=== PATIENT | female | born 1950 | race American Indian/Alaskan Native ===

== ENCOUNTER 2017-08-18 03:36 | Inpatient (IN) | payer MEDICARE ==
[2017-08-18] MEDS ORDERED: ZOFRAN ODT ONE (04:06)
[2017-08-18] MEDS ORDERED: ZOFRAN ODT PO ONE ×2 (04:07)
[2017-08-18 04:58] LABS: Basophils % (Auto) 0.8 % (0.0-1.8); Eosinophils % (Auto) 1.5 % (0.0-4.3); Hematocrit 38.8 % (30.3-42.9); Mean Corpuscular HGB Conc 33 % (30-34); Mean Corpuscular Hemoglobin 27 pg (28-32); Mean Corpuscular Volume 82 fl (79-97); Platelet Count 268 K/mm3 (140-440); Red Blood Count 4.75 M/mm3 (3.65-5.03); Red Cell Distribution Width 18.9 % (13.2-15.2); White Blood Count 12.5 K/mm3 (4.5-11.0)
[2017-08-18 06:04] LABS: Albumin 3.9 g/dL (3.9-5); Albumin/Globulin Ratio 1.1 %; Bilirubin,Total 0.2 mg/dL (0.1-1.2); Calcium 9.1 mg/dL (8.4-10.2); Chloride 97.4 mmol/L (98-107); Potassium 4.7 mmol/L (3.6-5.0); Total Protein 7.4 g/dL (6.3-8.2)
[2017-08-18] MEDS ORDERED: TORADOL IV ONE (08:57)
[2017-08-18] MEDS ORDERED: MORPHINE IV ONE ×2 (08:58→10:56)
[2017-08-18] MEDS ORDERED: NACL ONE (09:07)
[2017-08-18 09:33] LABS: Bacteria,Urine 2+ /HPF (Negative); Bilirubin,Urine NEG (Negative); Blood,Urine SM (Negative); Ketones,Urine NEG (Negative); Leukocyte Esterase,Urine TR (Negative); Mucus,Urine FEW /HPF; Nitrite,Urine NEG (Negative); Urobilinogen,Urine < 2.0 mg/dL (<2.0)
--- NOTE | 2017-08-18 09:49 | Cat Scan Report ---
CT of the abdomen and pelvis with IV and oral contrast. History: Left lower quadrant pain. Findings: The liver is normal in size and configuration with no focal abnormalities. There is a peripheral somewhat wedge shaped hypodensity in the posterior spleen measuring 7 mm in maximum dimension. No other splenic abnormalities are seen. The pancreas and gallbladder are normal. The kidneys are normal in size and configuration. 2 small cysts are seen in the left kidney. There is no hydronephrosis. The adrenal glands appear normal. There is marked mural thickening and pericolonic mesenteric inflammation in the mid sigmoid colon with multiple diverticula noted in the area. No free air is identified, and there is no evidence of focal abscess. Impression: 1. Diverticulitis of the sigmoid colon. 2. Small peripheral splenic hypodensity, possibly representing infarct or cyst. 3. 2 small left renal cysts are noted.
--- NOTE | 2017-08-18 10:33 | Emergency Department Report ---
ED Abdominal Pain HPI - General Chief Complaint: Abdominal Pain Stated Complaint: CHEST PAIN Source: patient, EMS Mode of arrival: Stretcher Limitations: No Limitations - History of Present Illness MD Complaint: abdominal pain Onset/Timin (day) -: Gradual Time: 21:00 Location: [facility] Radiation: chest Severity scale (0 -10): 6 Quality: sharp Consistency: constant Improves With: other (was given toradol and morphine with improvement) Worsens With: nothing Associated Symptoms: nausea, vomiting, constipation - Related Data Home Medications Medication Instructions Recorded Confirmed Last Taken Albuterol Sulfate [Ventolin HFA] 5 mg IH PRN 07/13/15 07/13/15 Unknown Amlodipine Besylate/Benazepril 10 mg PO QDAY 07/13/15 07/13/15 Unknown [Lotrel 10-40 mg] Fluticasone 1 spray INTRANASAL PRN PRN 07/13/15 07/13/15 Unknown Glimepiride [Amaryl] 2 mg PO QAM 07/13/15 07/13/15 Unknown Lantus Solostar 100 units SUB-Q ACHS 07/13/15 07/13/15 Unknown Losartan [Cozaar] 100 mg PO QDAY 07/13/15 07/13/15 Unknown Lubiprostone [Amitiza] 24 mcg PO DAILY 07/13/15 07/13/15 Unknown Metoprolol [Lopressor TAB] 25 mg PO DAILY 07/13/15 07/13/15 Unknown Nitroglycerin [Nitrostat] 0.4 mg TRANSDERMA DAILY 07/13/15 07/13/15 Unknown Potassium Gluconate [Potassium] 8 mg PO DAILY 07/13/15 07/13/15 Unknown Ranolazine [Ranexa] 1,000 mg PO DAILY 07/13/15 07/13/15 Unknown Rosuvastatin Calcium [Crestor] 40 mg PO DAILY 07/13/15 07/13/15 Unknown Sitagliptin Phosphate [Januvia] 100 mg PO DAILY 07/13/15 07/13/15 Unknown Tizanidine HCl [tiZANidine] 4 mg PO DAILY 07/13/15 07/13/15 Unknown Previous Rx's Medication Instructions Recorded Last Taken Type Ranitidine HCl [Zantac 150 MG TAB] 150 mg PO DAILY #30 tablet 07/13/15 Unknown Rx traMADol [Ultram] 50 mg PO Q6HR PRN #15 tablet 07/13/15 Unknown Rx Allergies Allergy/AdvReac Type Severity Reaction Status Date / Time No Known Allergies Allergy Verified 08/18/17 03:49 ED Review of Systems ROS: Stated complaint: CHEST PAIN Other details as noted in HPI Comment: All other systems reviewed and negative ED Past Medical Hx - Past Medical History Hx Hypertension: Yes Hx Heart Attack/AMI: Yes (X4) Hx Congestive Heart Failure: Yes Hx Diabetes: Yes - Surgical History Hx Open Heart Surgery: Yes - Social History Smoking Status: Never Smoker Substance Use Type: None - Medications Home Medications: Home Medications Medication Instructions Recorded Confirmed Last Taken Type Albuterol Sulfate [Ventolin HFA] 5 mg IH PRN 07/13/15 07/13/15 Unknown History Amlodipine Besylate/Benazepril 10 mg PO QDAY 07/13/15 07/13/15 Unknown History [Lotrel 10-40 mg] Fluticasone 1 spray INTRANASAL PRN PRN 07/13/15 07/13/15 Unknown History Glimepiride [Amaryl] 2 mg PO QAM 07/13/15 07/13/15 Unknown History Lantus Solostar 100 units SUB-Q ACHS 07/13/15 07/13/15 Unknown History Losartan [Cozaar] 100 mg PO QDAY 07/13/15 07/13/15 Unknown History Lubiprostone [Amitiza] 24 mcg PO DAILY 07/13/15 07/13/15 Unknown History Metoprolol [Lopressor TAB] 25 mg PO DAILY 07/13/15 07/13/15 Unknown History Nitroglycerin [Nitrostat] 0.4 mg TRANSDERMA DAILY 07/13/15 07/13/15 Unknown History Potassium Gluconate [Potassium] 8 mg PO DAILY 07/13/15 07/13/15 Unknown History Ranitidine HCl [Zantac 150 MG TAB] 150 mg PO DAILY #30 tablet 07/13/15 Unknown Rx Ranolazine [Ranexa] 1,000 mg PO DAILY 07/13/15 07/13/15 Unknown History Rosuvastatin Calcium [Crestor] 40 mg PO DAILY 07/13/15 07/13/15 Unknown History Sitagliptin Phosphate [Januvia] 100 mg PO DAILY 07/13/15 07/13/15 Unknown History Tizanidine HCl [tiZANidine] 4 mg PO DAILY 07/13/15 07/13/15 Unknown History traMADol [Ultram] 50 mg PO Q6HR PRN #15 tablet 07/13/15 Unknown Rx ED Physical Exam - General Limitations: No Limitations General appearance: alert, in no apparent distress - Head Head exam: Present: atraumatic, normocephalic - Eye Eye exam: Present: normal appearance - ENT ENT exam: Present: mucous membranes moist - Neck Neck exam: Present: normal inspection - Respiratory Respiratory exam: Present: normal lung sounds bilaterally. Absent: respiratory distress - Cardiovascular Cardiovascular Exam: Present: regular rate, normal rhythm. Absent: systolic murmur, diastolic murmur, rubs, gallop - GI/Abdominal GI/Abdominal exam: Present: soft, tenderness (left lower quadrant), normal bowel sounds. Absent: guarding - Extremities Exam Extremities exam: Present: normal inspection - Back Exam Back exam: Present: normal inspection - Neurological Exam Neurological exam: Present: alert, oriented X3 - Psychiatric Psychiatric exam: Present: normal affect, normal mood - Skin Skin exam: Present: warm, dry, intact, normal color. Absent: rash ED Course Vital Signs 08/18/17 08/18/17 08/18/17 03:45 03:46 04:56 Temperature 98.4 F Pulse Rate 98 H Respiratory 22 Rate Blood Pressure 204/114 160/75 O2 Sat by Pulse 97 98 96 Oximetry 08/18/17 08/18/17 08/18/17 04:59 05:01 06:00 Temperature Pulse Rate Respiratory 20 Rate Blood Pressure 143/68 132/75 O2 Sat by Pulse 94 96 Oximetry 08/18/17 08/18/17 08/18/17 07:01 08:00 09:39 Temperature Pulse Rate Respiratory Rate Blood Pressure 151/82 140/75 140/75 O2 Sat by Pulse 92 96 96 Oximetry ED Medical Decision Making - Lab Data Result diagrams: 08/18/17 04:40 08/18/17 05:27 - EKG Data -: EKG Interpreted by Me EKG shows normal: sinus rhythm, axis (NORMAL), intervals (NORMAL), QRS complexes (NORMAL), ST-T waves (NON SPECIFIC) Rate: normal - Radiology Data Radiology results: report reviewed - Medical Decision Making DIVERTICULITIS Critical care attestation.: If time is entered above; I have spent that time in minutes in the direct care of this critically ill patient, excluding procedure time. ED Disposition Clinical Impression: Sigmoid diverticulitis Disposition: DC-09 OP ADMIT IP TO THIS HOSP Is pt being admited?: Yes Does the pt Need Aspirin: Yes Condition: Stable Instructions: Abdominal Pain (ED) Referrals: JAKE FERNANDEZ MD [Primary Care Provider] - 3-5 Days Time of Disposition: 10:37
[2017-08-18] MEDS ORDERED: MORPHINE ONE (10:55)
[2017-08-18] MEDS ORDERED: TYLENOL PO PRN (11:00)
[2017-08-18] MEDS ORDERED: DULCOLAX PR PRN (11:00)
[2017-08-18] MEDS ORDERED: D50W (25GM) Syringe IV PRN (11:14)
--- NOTE | 2017-08-18 11:16 | History and Physical Report ---
<ADELINA MONGE - Last Filed: 08/18/17 13:33> History of Present Illness Date of examination: 08/18/17 Date of admission: 08/18/2017 Chief complaint: Left lower abdominal pain History of present illness: Patient is a 66 years old female with past medical history of hypertension, diabetes mellitus, congestive heart failure and [place] 4 who prsents to the emergency room for left lower quadrant abdominal pain,nausea and vomiting. The patient states that for the past five days she has felt bloated and has had a decrease in appetite. Two days ago she began having intermittent abdominal pain that initially felt like gas pains but it has now progressed to being nearly constant. Since yesterday she has had severe nausea and has had 4 episodes of bilious vomiting despite not having taken anything by mouth in over 24 hours. Her last bowel movement was over four days ago. She has a history of intermittent constipation but never with this level of pain, the vomiting, or the bloating. She has a history of diverticulitis. Initially, when she would eat the pain would increase but she has not eaten anything for over 24 hours. Vomiting is the only thing that seems to provide some minimal relief. Currently , the pain is described as a constant dull, diffuse pain that intermittently becomes sharp and well localized. The sharp pain tends to occur in different locations at different times. The intensity of the pain has been increasing over the past two days and on pain scale she now rates the pain at 8 out of 10. She denies a recent history of fever, jaundice, pruritis, diarrhea, hemoptysis, melena, or hematochezia. She denies a known history of hemorrhoids, colon cancer , peptic ulcer disease, gastritis, acid reflux, gall bladder disease or cholelithiasis. She denies a history of smoking or alcohol . Past History Past Medical History: diabetes, heart failure, hypertension, other (MIX4) Past Surgical History: CABG, Other (CABG) Social history: denies: smoking, alcohol abuse Family history: diabetes, hypertension Medications and Allergies Allergies Allergy/AdvReac Type Severity Reaction Status Date / Time No Known Allergies Allergy Verified 08/18/17 03:49 Home Medications Medication Instructions Recorded Confirmed Last Taken Type Glimepiride [Amaryl] 2 mg PO QAM 07/13/15 08/18/17 Unknown History Lubiprostone [Amitiza] 24 mcg PO DAILY 07/13/15 08/18/17 Unknown History Tizanidine HCl [tiZANidine] 4 mg PO DAILY 07/13/15 08/18/17 Unknown History Furosemide [Lasix TAB] 40 mg PO QDAY 08/18/17 08/18/17 Unknown History HYDROcodone/APAP 7.5-325 [[place] 1 tab PO Q6H 08/18/17 08/18/17 Unknown History 7.5-325 mg TAB] cloNIDine [Catapres] 0.1 mg PO BID 08/18/17 08/18/17 Unknown History diphenhydrAMINE [Benadryl CAP] 25 mg PO QHS 08/18/17 08/18/17 Unknown History glipiZIDE [Glucotrol] 10 mg PO BID 08/18/17 08/18/17 Unknown History Active Meds: Active Medications Acetaminophen (Tylenol) 650 mg PO Q4H PRN PRN Reason: Pain MILD(1-3)/Fever >100.5/GIBBONS Bisacodyl (Dulcolax) 10 mg [place] QDAY PRN PRN Reason: Constipation unrelieved by MOM Dextrose (D50w (25gm) Syringe) 50 ml IV PRN PRN PRN Reason: Hypoglycemia Enoxaparin Sodium (Lovenox) 40 mg SUB-Q QDAY HARVINDER Metronidazole (Flagyl 500 Mg/100 Ml) 500 mg in 100 mls @ 100 mls/hr IV Q8HR HARVINDER Sodium Chloride (Nacl 0.9% 1000 Ml) 1,000 mls @ 125 mls/hr IV DIRECT HARVINDER Piperacillin Sod/Tazobactam Sod (Zosyn/Ns 4.5gm/100ml) 4.5 gm in 100 mls @ 200 mls/hr IV Q6HR HARVINDER PRN Reason: Protocol Insulin Aspart (Novolog) 0 units SUB-Q AC HARVINDER PRN Reason: Protocol Insulin Aspart (Novolog) 0 units SUB-Q QHS HARVINDER PRN Reason: Protocol Morphine Sulfate (Morphine) 2 mg IV Q4H PRN PRN Reason: Pain, Moderate (4-6) Ondansetron HCl (Zofran) 4 mg IM Q4H PRN PRN Reason: Nausea And Vomiting Review of Systems Constitutional: chills, fatigue, weakness, poor appetite, no weight loss, no weight gain, no fever Ears, nose, mouth and throat: no nasal congestion, no nasal discharge, no sinus pain Cardiovascular: no chest pain, no rapid/irregular heart beat, no lightheadedness , no shortness of breath, no dyspnea on exertion Respiratory: no cough, no cough with sputum Gastrointestinal: abdominal pain, nausea, vomiting, excessive gas, no diarrhea, no melena, no jaundice Genitourinary Female: no pelvic pain, no menorrhagia Menstruation: no premenarcheal, no post hysterectomy, no ammenorrhea Rectal: no incontinence, no bleeding Musculoskeletal: no arm numbness/tingling, no low back pain, no shooting leg pain Integumentary: no redness, no wounds, no boils Neurological: no numbness, no tingling, no seizures Psychiatric: no hypersomnia, no change in libido, no suicidal ideation, no disorientation Endocrine: no excessive thirst, no polydipsia, no nocturia Hematologic/Lymphatic: no easy bruising, no easy bleeding Allergic/Immunologic: no urticaria, no allergic rhinitis Exam - Constitutional Vitals: Temp Pulse Resp BP Pulse Ox 98.4 F 98 H 20 156/82 95 08/18/17 03:45 08/18/17 03:45 08/18/17 04:59 08/18/17 10:00 08/18/17 10:00 General appearance: Present: no acute distress - EENT Eyes: Present: PERRL ENT: hearing intact - Neck Neck: Present: supple - Respiratory Respiratory effort: normal Respiratory: bilateral: CTA - Cardiovascular Rhythm: regular Heart Sounds: Present: S1 & S2 - Abdominal General gastrointestinal: Present: soft, non-tender Localized gastrointestinal: tender: LLQ, epigastric periumbilical, guarding: LLQ , epigastric periumbilical Female genitourinary: Present: deferred - Rectal Rectal Exam: deferred - Integumentary Integumentary: Present: clear, warm, dry - Musculoskeletal Musculoskeletal: strength equal bilaterally - Psychiatric Psychiatric: appropriate mood/affect - Neurologic Neurologic: moves all extremities - Allied Health Allied health notes reviewed: nursing Results - Labs CBC & Chem 7: 08/18/17 04:40 08/18/17 05:27 Labs: Laboratory Last Values WBC 12.5 K/mm3 (4.5-11.0) H 08/18/17 04:40 RBC 4.75 M/mm3 (3.65-5.03) 08/18/17 04:40 Hgb 13.0 gm/dl (10.1-14.3) 08/18/17 04:40 Hct 38.8 % (30.3-42.9) 08/18/17 04:40 MCV 82 fl (79-97) 08/18/17 04:40 MCH 27 pg (28-32) L 08/18/17 04:40 MCHC 33 % (30-34) 08/18/17 04:40 RDW 18.9 % (13.2-15.2) H 08/18/17 04:40 Plt Count 268 K/mm3 (140-440) 08/18/17 04:40 Lymph % (Auto) 21.5 % (13.4-35.0) 08/18/17 04:40 [place] % (Auto) 10.0 % (0.0-7.3) H 08/18/17 04:40 Eos % (Auto) 1.5 % (0.0-4.3) 08/18/17 04:40 Baso % (Auto) 0.8 % (0.0-1.8) 08/18/17 04:40 Lymph # 2.7 K/mm3 (1.2-5.4) 08/18/17 04:40 [place] # 1.2 K/mm3 (0.0-0.8) H 08/18/17 04:40 Eos # 0.2 K/mm3 (0.0-0.4) 08/18/17 04:40 Baso # 0.1 K/mm3 (0.0-0.1) 08/18/17 04:40 Seg Neutrophils % 66.2 % (40.0-70.0) 08/18/17 04:40 Seg Neutrophils # 8.3 K/mm3 (1.8-7.7) H 08/18/17 04:40 Sodium 135 mmol/L (137-145) L 08/18/17 05:27 Potassium 4.7 mmol/L (3.6-5.0) 08/18/17 05:27 Chloride 97.4 mmol/L (98-107) L 08/18/17 05:27 Carbon Dioxide 23 mmol/L (22-30) 08/18/17 05:27 Anion Gap 19 mmol/L 08/18/17 05:27 BUN 15 mg/dL (7-17) 08/18/17 05:27 Creatinine 1.1 mg/dL (0.7-1.2) 08/18/17 05:27 Estimated GFR 60 ml/min 08/18/17 05:27 BUN/Creatinine Ratio 14 % 08/18/17 05:27 Glucose 216 mg/dL (65-100) H 08/18/17 05:27 Calcium 9.1 mg/dL (8.4-10.2) 08/18/17 05:27 Total Bilirubin 0.20 mg/dL (0.1-1.2) 08/18/17 05:27 AST 12 units/L (5-40) 08/18/17 05:27 ALT 9 units/L (7-56) 08/18/17 05:27 Alkaline Phosphatase 104 units/L (35-129) 08/18/17 05:27 Total Protein 7.4 g/dL (6.3-8.2) 08/18/17 05:27 Albumin 3.9 g/dL (3.9-5) 08/18/17 05:27 Albumin/Globulin Ratio 1.1 % 08/18/17 05:27 Lipase 13 units/L (13-60) 08/18/17 05:27 Urine Color Yellow (Yellow) 08/18/17 09:09 Urine Turbidity Clear (Clear) 08/18/17 09:09 Urine pH 5.0 (5.0-7.0) 08/18/17 09:09 Ur Specific [place] 1.012 (1.003-1.030) 08/18/17 09:09 Urine Protein 30 mg/dl mg/dL (Negative) 08/18/17 09:09 Urine Glucose (UA) 50 mg/dL (Negative) 08/18/17 09:09 Urine Ketones Neg mg/dL (Negative) 08/18/17 09:09 Urine Blood Sm (Negative) 08/18/17 09:09 Urine Nitrite Neg (Negative) 08/18/17 09:09 Urine Bilirubin Neg (Negative) 08/18/17 09:09 Urine Urobilinogen < 2.0 mg/dL (<2.0) 08/18/17 09:09 Ur Leukocyte Esterase Tr (Negative) 08/18/17 09:09 Urine WBC (Auto) 5.0 /HPF (0.0-6.0) 08/18/17 09:09 Urine RBC (Auto) 6.0 /HPF (0.0-6.0) 08/18/17 09:09 U Epithel Cells (Auto) 6.0 /HPF (0-13.0) 08/18/17 09:09 Urine Bacteria (Auto) 2+ /HPF (Negative) 08/18/17 09:09 Urine Mucus Few /HPF 08/18/17 09:09 - Imaging and Cardiology CT scan - abdomen: image reviewed (diverticulitis of the sigmoid colon) Assessment and Plan Assessment and plan: Patient is a 66 years old female with past medical history of hypertension, diabetes mellitus, congestive heart failure and [place] 4 who prsents to the emergency room for left lower quadrant abdominal pain,nausea and vomiting. Diverticulitis CT of the abdomen revealed diverticulitis of the sigmoid colon Nothing by mouth; rest the gut for now and we will start clear liquid diet as tolerated Blood cultures collected prior to antibiotic Flllow blood cultures Initiated empiric IV Levaquin and Flagyl IV fluid hydration Supportive care Intractable nausea and vomiting Started on antiemetic IV fluid hydration Pain contol with Morphine Diabetes mellitus Accu-Chek every 6 hours Sliding scale insulin/NovoLog Hypertension Hold on antihypertensive medication for now until N/V resolved IV Hydralazine for now Closely monitor blood pressure Hyponatremia Started on IV fluids that will correct it Closely monitor electrolytes Leukocytosis Secondary to diverticulitis Closely monitor DVT prophylaxis Lovenox Advance Directives: Yes VTE prophylaxis?: Chemical Contraindication Mechanical VTE Prophylaxis: Contraindicated Plan of care discussed with patient/family: Yes <ABUNDIO MCCORMICK E - Last Filed: 08/18/17 18:55> History of Present Illness Date of admission: 08/18/17 11:00 Medications and Allergies Active Meds: Active Medications Acetaminophen (Tylenol) 650 mg PO Q4H PRN PRN Reason: Pain MILD(1-3)/Fever >100.5/GIB[place]ONS Bisacodyl (Dulcolax) 10 mg WI QDAY PRN PRN Reason: Constipation unrelieved by MOM Dextrose (D50w (25gm) Syringe) 50 ml IV PRN PRN PRN Reason: Hypoglycemia Enoxaparin Sodium (Lovenox) 40 mg SUB-Q QDAY HARVINDER Metronidazole (Flagyl 500 Mg/100 Ml) 500 mg in 100 mls @ 100 mls/hr IV Q8HR HARVINDER Last Admin: 08/18/17 15:45 Dose: 100 mls/hr Sodium Chloride (Nacl 0.9% 1000 Ml) 1,000 mls @ 125 mls/hr IV DIRECT HARVINDER Levofloxacin/Dextrose (Levaquin 500mg/100ml) 500 mg in 100 mls @ 100 mls/hr IV Q24HR HARVINDER PRN Reason: Protocol Insulin Aspart (Novolog) 0 units SUB-Q AC HARVINDER PRN Reason: Protocol Last Admin: 08/18/17 11:41 Dose: 1 units Insulin Aspart (Novolog) 0 units SUB-Q QHS HARVINDER PRN Reason: Protocol Morphine Sulfate (Morphine) 2 mg IV Q4H PRN PRN Reason: Pain, Moderate (4-6) Last Admin: 08/18/17 15:45 Dose: 2 mg Ondansetron HCl (Zofran) 4 mg IM Q4H PRN PRN Reason: Nausea And Vomiting Exam - Constitutional Vitals: Temp Pulse Resp BP Pulse Ox 99 F 92 H 18 148/72 95 08/18/17 15:20 08/18/17 15:20 08/18/17 15:20 08/18/17 15:20 08/18/17 15:20 Results - Labs CBC & Chem 7: 08/18/17 04:40 08/18/17 05:27 Labs: Laboratory Last Values WBC 12.5 K/mm3 (4.5-11.0) H 08/18/17 04:40 RBC 4.75 M/mm3 (3.65-5.03) 08/18/17 04:40 Hgb 13.0 gm/dl (10.1-14.3) 08/18/17 04:40 Hct 38.8 % (30.3-42.9) 08/18/17 04:40 MCV 82 fl (79-97) 08/18/17 04:40 MCH 27 pg (28-32) L 08/18/17 04:40 MCHC 33 % (30-34) 08/18/17 04:40 RDW 18.9 % (13.2-15.2) H 08/18/17 04:40 Plt Count 268 K/mm3 (140-440) 08/18/17 04:40 Lymph % (Auto) 21.5 % (13.4-35.0) 08/18/17 04:40 [place] % (Auto) 10.0 % (0.0-7.3) H 08/18/17 04:40 Eos % (Auto) 1.5 % (0.0-4.3) 08/18/17 04:40 Baso % (Auto) 0.8 % (0.0-1.8) 08/18/17 04:40 Lymph # 2.7 K/mm3 (1.2-5.4) 08/18/17 04:40 [place] # 1.2 K/mm3 (0.0-0.8) H 08/18/17 04:40 Eos # 0.2 K/mm3 (0.0-0.4) 08/18/17 04:40 Baso # 0.1 K/mm3 (0.0-0.1) 08/18/17 04:40 Seg Neutrophils % 66.2 % (40.0-70.0) 08/18/17 04:40 Seg Neutrophils # 8.3 K/mm3 (1.8-7.7) H 08/18/17 04:40 Sodium 135 mmol/L (137-145) L 08/18/17 05:27 Potassium 4.7 mmol/L (3.6-5.0) 08/18/17 05:27 Chloride 97.4 mmol/L (98-107) L 08/18/17 05:27 Carbon Dioxide 23 mmol/L (22-30) 08/18/17 05:27 Anion Gap 19 mmol/L 08/18/17 05:27 BUN 15 mg/dL (7-17) 08/18/17 05:27 Creatinine 1.1 mg/dL (0.7-1.2) 08/18/17 05:27 Estimated GFR 60 ml/min 08/18/17 05:27 BUN/Creatinine Ratio 14 % 08/18/17 05:27 Glucose 216 mg/dL (65-100) H 08/18/17 05:27 POC Glucose 102 (70-105) 08/18/17 16:54 Lactic Acid 1.30 mmol/L (0.7-2.0) 08/18/17 11:12 Calcium 9.1 mg/dL (8.4-10.2) 08/18/17 05:27 Total Bilirubin 0.20 mg/dL (0.1-1.2) 08/18/17 05:27 AST 12 units/L (5-40) 08/18/17 05:27 ALT 9 units/L (7-56) 08/18/17 05:27 Alkaline Phosphatase 104 units/L (35-129) 08/18/17 05:27 Total Protein 7.4 g/dL (6.3-8.2) 08/18/17 05:27 Albumin 3.9 g/dL (3.9-5) 08/18/17 05:27 Albumin/Globulin Ratio 1.1 % 08/18/17 05:27 Lipase 13 units/L (13-60) 08/18/17 05:27 Urine Color Yellow (Yellow) 08/18/17 09:09 Urine Turbidity Clear (Clear) 08/18/17 09:09 Urine pH 5.0 (5.0-7.0) 08/18/17 09:09 Ur Specific [place] 1.012 (1.003-1.030) 08/18/17 09:09 Urine Protein 30 mg/dl mg/dL (Negative) 08/18/17 09:09 Urine Glucose (UA) 50 mg/dL (Negative) 08/18/17 09:09 Urine Ketones Neg mg/dL (Negative) 08/18/17 09:09 Urine Blood Sm (Negative) 08/18/17 09:09 Urine Nitrite Neg (Negative) 08/18/17 09:09 Urine Bilirubin Neg (Negative) 08/18/17 09:09 Urine Urobilinogen < 2.0 mg/dL (<2.0) 08/18/17 09:09 Ur Leukocyte Esterase Tr (Negative) 08/18/17 09:09 Urine WBC (Auto) 5.0 /HPF (0.0-6.0) 08/18/17 09:09 Urine RBC (Auto) 6.0 /HPF (0.0-6.0) 08/18/17 09:09 U Epithel Cells (Auto) 6.0 /HPF (0-13.0) 08/18/17 09:09 Urine Bacteria (Auto) 2+ /HPF (Negative) 08/18/17 09:09 Urine Mucus Few /HPF 08/18/17 09:09 Assessment and Plan Assessment and plan: I saw and evaluated the patient. I agree with the findings and the plan of care as documented in the Nurse Practitioner's~note, with the following corrections and additions. Patient seen and examined, as noted above with low quad abdominal pain on the left. she reports prior episode about 5 years ago. she states the pain was a 10/ 10 but now a 7/10 will continue tx as outline above.
[2017-08-18] MEDS: NOVOLOG SUB-Q SCH ×2 (11:41→16:30)
[2017-08-18] MEDS ORDERED: ZOSYN/NS 4.5GM/100ML 4.5 GM/100 ML VIAL IV SCH (12:00)
[2017-08-18] MEDS ORDERED: NACL 0.9% 1000 ML 1,000 ML IV SCH (12:00)
[2017-08-18] MEDS ORDERED: LEVAQUIN 750MG/150ML 750 MG/150 ML BAG IV ONE (12:09)
[2017-08-18] MEDS: FLAGYL 500 MG/100 ML 500 MG/100 ML BAG IV SCH ×2 (15:45→23:54)
[2017-08-18] MEDS: MORPHINE IV PRN ×2 (15:45→19:49)
[2017-08-18] MEDS ORDERED: NOVOLOG SUB-Q SCH (22:00)
[2017-08-19] MEDS: MORPHINE IV PRN ×3 (00:56→20:41)
[2017-08-19 04:24] LABS: Basophils % (Auto) 0.6 % (0.0-1.8); Eosinophils % (Auto) 0.3 % (0.0-4.3); Hematocrit 39.1 % (30.3-42.9); Hemoglobin 12.4 gm/dl (10.1-14.3); Mean Corpuscular HGB Conc 32 % (30-34); Mean Corpuscular Hemoglobin 26 pg (28-32); Mean Corpuscular Volume 82 fl (79-97); Platelet Count 291 K/mm3 (140-440); Red Blood Count 4.76 M/mm3 (3.65-5.03); Red Cell Distribution Width 18.9 % (13.2-15.2); White Blood Count 11.3 K/mm3 (4.5-11.0)
[2017-08-19 04:38] LABS: Anion Gap 17 mmol/L; BUN/Creatinine Ratio 9; Blood Urea Nitrogen 9 mg/dL (7-17); Carbon Dioxide 27 mmol/L (22-30); Chloride 98.7 mmol/L (98-107); Glucose 148 mg/dL (65-100); Potassium 3.9 mmol/L (3.6-5.0); Sodium 139 mmol/L (137-145)
[2017-08-19] MEDS ORDERED: APRESOLINE IV PRN (07:26)
[2017-08-19] MEDS: NOVOLOG SUB-Q SCH ×4 (08:30→22:55)
[2017-08-19] MEDS: NORCO 7.5/325 PO SCH ×3 (08:50→20:19)
[2017-08-19] MEDS: CATAPRES PO SCH ×2 (09:39→21:15)
[2017-08-19] MEDS: LASIX PO SCH (09:39)
[2017-08-19] MEDS: LOVENOX SUB-Q SCH (09:40)
[2017-08-19] MEDS: LEVAQUIN 500MG/100ML 500 MG/100 ML BAG IV SCH (09:40)
[2017-08-19] MEDS ORDERED: NON-FORMULARY (Lubiprostone [Amitiza] 24 MCG) PO SCH (10:00)
[2017-08-19] MEDS ORDERED: ZANAFLEX PO SCH (10:00)
--- NOTE | 2017-08-19 12:10 | Progress Note ---
<RADHA HARRIS - Last Filed: 08/19/17 12:19> Assessment and Plan Assessment and plan: Assessment: Patient is a 66 years old female with past medical history of hypertension, diabetes mellitus, congestive heart failure and [place] 4 who prsents to the emergency room for left lower quadrant abdominal pain,nausea and vomiting. Today patient seen and evaluated with no apparent distress. Is alert and oriented time 4. Pupils equal and reactive to light and accommodation. Neck without jugular vein distension and adenopathy. Lungs clear to auscultation bilaterally. Noted with normal heart sound, regular with S1 S2, no murmurs and + 2 pulses throughout. No edema noted to extremities. Abdomen soft and tender especially in the left lower quadrant, consistent with diagnosis of acute Diverticulitis, hypoactive bowel sounds throughout. Skin warm, dry and intact. Plan: Diverticulitis CT of the abdomen revealed diverticulitis of the sigmoid colon started on clear liquid diet, tolerated well Blood cultures collected and results pending Continue with Antibiotic therapy Flagyl IV fluid hydration Supportive care Intractable nausea and vomiting Antiemetic as needed IV fluid hydration Pain contol with Morphine and [place] as needed Diabetes mellitus Accu-Chek every 6 hours Sliding scale insulin/NovoLog Hypertension Continue Clonidine IV Hydralazine PRN for SBP > 160 Continue with close monitoring of blood pressure Hyponatremia Continue with IV fluids, today's Na+ 139, K+ 3.8 Closely monitor electrolytes Leukocytosis Secondary to diverticulitis Closely monitor DVT prophylaxis Lovenox Patient has been seen and evaluated in conjunction with Dr Spain who agree with treatment regimen and plan of care. History Interval history: Patient is a 66 years old female with past medical history of hypertension, diabetes mellitus, congestive heart failure and [place] 4 who presents to the emergency room for left lower quadrant abdominal pain,nausea and vomiting. The patient states that for the past five days she has felt bloated and has had a decrease in appetite. Two days ago she began having intermittent abdominal pain that initially felt like gas pains but it has now progressed to being nearly constant. 1 day prior to admission patient stated had severe nausea and had 4 episodes of bilious vomiting despite not having taken anything by mouth in over 24 hours. Her last bowel movement was over four days at the time. She has a history of intermittent constipation but never with this level of pain, the vomiting, or the bloating. She has a history of diverticulitis. Initially, when she would eat the pain would increase but she has not eaten anything for over 24 hours. Vomiting is the only thing that seems to provide some minimal relief. The abdominal pain is described as a constant dull, diffuse pain that intermittently becomes sharp and well localized. The sharp pain tends to occur in different locations at different times. The intensity of the pain has been increasing over two days. She denies a recent history of fever, jaundice, puritis, diarrhea, hemoptysis, melena, or hematochezia. She denies a known history of hemorrhoids, colon cancer, peptic ulcer disease, gastritis, acid reflux, gall bladder disease or cholelithiasis. She denies a history of smoking or alcohol . Hospitalist Physical - Constitutional Vitals: Temp Pulse Resp BP Pulse Ox 98.8 F 91 H 18 153/81 99 08/19/17 07:58 08/19/17 09:39 08/19/17 10:00 08/19/17 09:39 08/19/17 10:00 General appearance: Present: no acute distress - EENT Eyes: Present: PERRL ENT: hearing intact - Neck Neck: Present: supple, normal ROM. Absent: rigidity, enlarged thyroid, masses or JVD - Respiratory Respiratory effort: normal Respiratory: bilateral: CTA (No Shortness of breath, rale or rhonchi) - Cardiovascular Rhythm: regular Heart Sounds: Present: S1 & S2. Absent: gallop, systolic murmur, diastolic murmur - Extremities Extremities: no ischemia, pulses intact, No edema, normal temperature, normal color, Full ROM Peripheral Pulses: within normal limits - Abdominal General gastrointestinal: soft, tender (to Left lower quadrant), hypoactive bowel sounds - Integumentary Integumentary: Present: warm, dry, normal turgor. Absent: erythema, jaundice, rash, pale, decreased turgor - Psychiatric Psychiatric: appropriate mood/affect, no agitated, no depressed Results - Labs CBC & Chem 7: 08/19/17 03:46 08/19/17 03:46 Labs: Laboratory Last Values WBC 11.3 K/mm3 (4.5-11.0) H 08/19/17 03:46 RBC 4.76 M/mm3 (3.65-5.03) 08/19/17 03:46 Hgb 12.4 gm/dl (10.1-14.3) 08/19/17 03:46 Hct 39.1 % (30.3-42.9) 08/19/17 03:46 MCV 82 fl (79-97) 08/19/17 03:46 MCH 26 pg (28-32) L 08/19/17 03:46 MCHC 32 % (30-34) 08/19/17 03:46 RDW 18.9 % (13.2-15.2) H 08/19/17 03:46 Plt Count 291 K/mm3 (140-440) 08/19/17 03:46 Lymph % (Auto) 18.4 % (13.4-35.0) 08/19/17 03:46 [place] % (Auto) 8.8 % (0.0-7.3) H 08/19/17 03:46 Eos % (Auto) 0.3 % (0.0-4.3) 08/19/17 03:46 Baso % (Auto) 0.6 % (0.0-1.8) 08/19/17 03:46 Lymph # 2.1 K/mm3 (1.2-5.4) 08/19/17 03:46 [place] # 1.0 K/mm3 (0.0-0.8) H 08/19/17 03:46 Eos # 0.0 K/mm3 (0.0-0.4) 08/19/17 03:46 Baso # 0.1 K/mm3 (0.0-0.1) 08/19/17 03:46 Seg Neutrophils % 71.9 % (40.0-70.0) H 08/19/17 03:46 Seg Neutrophils # 8.1 K/mm3 (1.8-7.7) H 08/19/17 03:46 Sodium 139 mmol/L (137-145) 08/19/17 03:46 Potassium 3.9 mmol/L (3.6-5.0) 08/19/17 03:46 Chloride 98.7 mmol/L (98-107) 08/19/17 03:46 Carbon Dioxide 27 mmol/L (22-30) 08/19/17 03:46 Anion Gap 17 mmol/L 08/19/17 03:46 BUN 9 mg/dL (7-17) 08/19/17 03:46 Creatinine 1.0 mg/dL (0.7-1.2) 08/19/17 03:46 Estimated GFR > 60 ml/min 08/19/17 03:46 BUN/Creatinine Ratio 9 % 08/19/17 03:46 Glucose 148 mg/dL (65-100) H 08/19/17 03:46 POC Glucose 147 (70-105) H 08/19/17 08:01 Lactic Acid 1.30 mmol/L (0.7-2.0) 08/18/17 11:12 Calcium 9.0 mg/dL (8.4-10.2) 08/19/17 03:46 Total Bilirubin 0.20 mg/dL (0.1-1.2) 08/18/17 05:27 AST 12 units/L (5-40) 08/18/17 05:27 ALT 9 units/L (7-56) 08/18/17 05:27 Alkaline Phosphatase 104 units/L (35-129) 08/18/17 05:27 Total Protein 7.4 g/dL (6.3-8.2) 08/18/17 05:27 Albumin 3.9 g/dL (3.9-5) 08/18/17 05:27 Albumin/Globulin Ratio 1.1 % 08/18/17 05:27 Lipase 13 units/L (13-60) 08/18/17 05:27 Urine Color Yellow (Yellow) 08/18/17 09:09 Urine Turbidity Clear (Clear) 08/18/17 09:09 Urine pH 5.0 (5.0-7.0) 08/18/17 09:09 Ur Specific [place] 1.012 (1.003-1.030) 08/18/17 09:09 Urine Protein 30 mg/dl mg/dL (Negative) 08/18/17 09:09 Urine Glucose (UA) 50 mg/dL (Negative) 08/18/17 09:09 Urine Ketones Neg mg/dL (Negative) 08/18/17 09:09 Urine Blood Sm (Negative) 08/18/17 09:09 Urine Nitrite Neg (Negative) 08/18/17 09:09 Urine Bilirubin Neg (Negative) 08/18/17 09:09 Urine Urobilinogen < 2.0 mg/dL (<2.0) 08/18/17 09:09 Ur Leukocyte Esterase Tr (Negative) 08/18/17 09:09 Urine WBC (Auto) 5.0 /HPF (0.0-6.0) 08/18/17 09:09 Urine RBC (Auto) 6.0 /HPF (0.0-6.0) 08/18/17 09:09 U Epithel Cells (Auto) 6.0 /HPF (0-13.0) 08/18/17 09:09 Urine Bacteria (Auto) 2+ /HPF (Negative) 08/18/17 09:09 Urine Mucus Few /HPF 08/18/17 09:09 <ABUNDIO SPAIN - Last Filed: 08/19/17 14:33> Assessment and Plan Assessment and plan: I saw and evaluated the patient. I agree with the findings and the plan of care as documented in the Nurse Practitioner's~note, with the following corrections and additions. Patient seen and examined today, still with mild LLQ Tenderness but improved compared to yesterday. Tolerating some PO clear liquids. SIRS secondary to Diverticulitis. No sepsis. Lactate is negative. Continue tx as outline above. Advance diet when abdominal pain resolves. IF no resolution consider reimaging abdomen in 3 days Plan discussed with the patient and she verablized understanding. Hospitalist Physical - Constitutional Vitals: Temp Pulse Resp BP Pulse Ox 98.8 F 91 H 18 153/81 99 08/19/17 07:58 08/19/17 09:39 08/19/17 10:00 08/19/17 09:39 08/19/17 10:00 Results - Labs CBC & Chem 7: 08/19/17 03:46 08/19/17 03:46 Labs: Laboratory Last Values WBC 11.3 K/mm3 (4.5-11.0) H 08/19/17 03:46 RBC 4.76 M/mm3 (3.65-5.03) 08/19/17 03:46 Hgb 12.4 gm/dl (10.1-14.3) 08/19/17 03:46 Hct 39.1 % (30.3-42.9) 08/19/17 03:46 MCV 82 fl (79-97) 08/19/17 03:46 MCH 26 pg (28-32) L 08/19/17 03:46 MCHC 32 % (30-34) 08/19/17 03:46 RDW 18.9 % (13.2-15.2) H 08/19/17 03:46 Plt Count 291 K/mm3 (140-440) 08/19/17 03:46 Lymph % (Auto) 18.4 % (13.4-35.0) 08/19/17 03:46 [place] % (Auto) 8.8 % (0.0-7.3) H 08/19/17 03:46 Eos % (Auto) 0.3 % (0.0-4.3) 08/19/17 03:46 Baso % (Auto) 0.6 % (0.0-1.8) 08/19/17 03:46 Lymph # 2.1 K/mm3 (1.2-5.4) 08/19/17 03:46 [place] # 1.0 K/mm3 (0.0-0.8) H 08/19/17 03:46 Eos # 0.0 K/mm3 (0.0-0.4) 08/19/17 03:46 Baso # 0.1 K/mm3 (0.0-0.1) 08/19/17 03:46 Seg Neutrophils % 71.9 % (40.0-70.0) H 08/19/17 03:46 Seg Neutrophils # 8.1 K/mm3 (1.8-7.7) H 08/19/17 03:46 Sodium 139 mmol/L (137-145) 08/19/17 03:46 Potassium 3.9 mmol/L (3.6-5.0) 08/19/17 03:46 Chloride 98.7 mmol/L (98-107) 08/19/17 03:46 Carbon Dioxide 27 mmol/L (22-30) 08/19/17 03:46 Anion Gap 17 mmol/L 08/19/17 03:46 BUN 9 mg/dL (7-17) 08/19/17 03:46 Creatinine 1.0 mg/dL (0.7-1.2) 08/19/17 03:46 Estimated GFR > 60 ml/min 08/19/17 03:46 BUN/Creatinine Ratio 9 % 08/19/17 03:46 Glucose 148 mg/dL (65-100) H 08/19/17 03:46 POC Glucose 200 (70-105) H 08/19/17 11:36 Lactic Acid 1.30 mmol/L (0.7-2.0) 08/18/17 11:12 Calcium 9.0 mg/dL (8.4-10.2) 08/19/17 03:46 Total Bilirubin 0.20 mg/dL (0.1-1.2) 08/18/17 05:27 AST 12 units/L (5-40) 08/18/17 05:27 ALT 9 units/L (7-56) 08/18/17 05:27 Alkaline Phosphatase 104 units/L (35-129) 08/18/17 05:27 Total Protein 7.4 g/dL (6.3-8.2) 08/18/17 05:27 Albumin 3.9 g/dL (3.9-5) 08/18/17 05:27 Albumin/Globulin Ratio 1.1 % 08/18/17 05:27 Lipase 13 units/L (13-60) 08/18/17 05:27 Urine Color Yellow (Yellow) 08/18/17 09:09 Urine Turbidity Clear (Clear) 08/18/17 09:09 Urine pH 5.0 (5.0-7.0) 08/18/17 09:09 Ur Specific [place] 1.012 (1.003-1.030) 08/18/17 09:09 Urine Protein 30 mg/dl mg/dL (Negative) 08/18/17 09:09 Urine Glucose (UA) 50 mg/dL (Negative) 08/18/17 09:09 Urine Ketones Neg mg/dL (Negative) 08/18/17 09:09 Urine Blood Sm (Negative) 08/18/17 09:09 Urine Nitrite Neg (Negative) 08/18/17 09:09 Urine Bilirubin Neg (Negative) 08/18/17 09:09 Urine Urobilinogen < 2.0 mg/dL (<2.0) 08/18/17 09:09 Ur Leukocyte Esterase Tr (Negative) 08/18/17 09:09 Urine WBC (Auto) 5.0 /HPF (0.0-6.0) 08/18/17 09:09 Urine RBC (Auto) 6.0 /HPF (0.0-6.0) 08/18/17 09:09 U Epithel Cells (Auto) 6.0 /HPF (0-13.0) 08/18/17 09:09 Urine Bacteria (Auto) 2+ /HPF (Negative) 08/18/17 09:09 Urine Mucus Few /HPF 08/18/17 09:09
[2017-08-19] MEDS: FLAGYL 500 MG/100 ML 500 MG/100 ML BAG IV SCH ×3 (14:40→21:15)
[2017-08-19] MEDS: ZOFRAN IM PRN ×2 (18:09→21:15)
[2017-08-19] MEDS: BENADRYL PO SCH (21:15)
[2017-08-20] MEDS: MORPHINE IV PRN ×3 (00:08→20:53)
[2017-08-20] MEDS: ZOFRAN IM PRN ×3 (01:37→11:06)
[2017-08-20] MEDS: NORCO 7.5/325 PO SCH ×4 (01:38→20:15)
[2017-08-20 05:53] LABS: Hematocrit 38.7 % (30.3-42.9); Hemoglobin 12.8 gm/dl (10.1-14.3); Mean Corpuscular HGB Conc 33 % (30-34); Mean Corpuscular Hemoglobin 28 pg (28-32); Mean Corpuscular Volume 83 fl (79-97); Platelet Count 313 K/mm3 (140-440); Red Blood Count 4.64 M/mm3 (3.65-5.03); Red Cell Distribution Width 19.4 % (13.2-15.2); White Blood Count 10.5 K/mm3 (4.5-11.0)
[2017-08-20 06:10] LABS: Calcium 9.1 mg/dL (8.4-10.2); Potassium 4.3 mmol/L (3.6-5.0)
[2017-08-20] MEDS: FLAGYL 500 MG/100 ML 500 MG/100 ML BAG IV SCH ×3 (06:56→20:59)
[2017-08-20] MEDS: NOVOLOG SUB-Q SCH ×4 (08:45→23:00)
[2017-08-20] MEDS: LASIX PO SCH (09:21)
[2017-08-20] MEDS: LOVENOX SUB-Q SCH (09:21)
[2017-08-20] MEDS: CATAPRES PO SCH ×3 (09:21→22:00)
[2017-08-20] MEDS: LEVAQUIN 500MG/100ML 500 MG/100 ML BAG IV SCH (09:22)
[2017-08-20] MEDS: TORADOL IV PRN ×2 (11:03→19:15)
--- NOTE | 2017-08-20 12:38 | XRay Report ---
KUB: 08/20/17 10:35:00 CLINICAL: Abdominal pain. FINDINGS: A single dilated loop of presumably small bowel in the lower abdomen to the right of midline. No other distended small bowel. Moderate stool throughout the colon. No mass or suspicious calcifications. No pneumoperitoneum. IMPRESSION: Nonspecific gas pattern a single loop of dilated small bowel. Moderate stool.
--- NOTE | 2017-08-20 13:09 | Progress Note ---
Assessment and Plan Assessment and plan: Patient is a 66 years old female with past medical history of hypertension, diabetes mellitus, congestive heart failure and [place] 4 who presented to the emergency room for left lower quadrant abdominal pain,nausea and vomiting. Admitted for the management of diverticulitis. Patient still complaining severe pain. Diverticulitis - Patient is on IV Levaquin and Flagyl - Pain control - No improvement in pain and GI consulted - Patient is on clear liquid diet, advance as tolerated Intractable nausea and vomiting - Symptomatic management Diabetes mellitus - Accu-Chek every 6 hours - Sliding scale insulin/NovoLog Hypertension - Continue Clonidine - IV Hydralazine PRN for SBP > 160 - Continue with close monitoring of blood pressure Hyponatremia - Resolved Leukocytosis - Resolved DVT prophylaxis Lovenox Disposition - Continue inpatient care. History Interval history: Patient was seen and evaluated this morning, patient's complaining left lower quadrant pain. Patient has bowel movement. No fever, chills. Hospitalist Physical - Physical exam Narrative exam: Not in cardiopulmonary distress. The patient is obese. Vital signs as documented. Head exam is unremarkable. No scleral icterus . Neck is without jugular venous distension, thyromegaly, or carotid bruits. Lungs are clear to auscultation. Cardiac exam reveals regular rate and Rhythm. First and second heart sounds normal. No murmurs, rubs or gallops. Abdominal exam reveals mild tenderness, no guarding or rigidity. Extremities are nonedematous and both femoral and pedal pulses are normal. DEHYDROGENATION CONVERTER HELPER: Alert and oriented 3. No focal weakness. - Constitutional Vitals: Temp Pulse Resp BP Pulse Ox 100.6 F H 106 H 20 157/87 87 08/20/17 04:53 08/20/17 09:21 08/20/17 11:03 08/20/17 09:21 08/20/17 04:53 General appearance: Present: no acute distress Results - Labs CBC & Chem 7: 08/20/17 05:27 08/20/17 05:27 Labs: Laboratory Last Values WBC 10.5 K/mm3 (4.5-11.0) 08/20/17 05:27 RBC 4.64 M/mm3 (3.65-5.03) 08/20/17 05:27 Hgb 12.8 gm/dl (10.1-14.3) 08/20/17 05:27 Hct 38.7 % (30.3-42.9) 08/20/17 05:27 MCV 83 fl (79-97) 08/20/17 05:27 MCH 28 pg (28-32) 08/20/17 05:27 MCHC 33 % (30-34) 08/20/17 05:27 RDW 19.4 % (13.2-15.2) H 08/20/17 05:27 Plt Count 313 K/mm3 (140-440) 08/20/17 05:27 Lymph % (Auto) 18.4 % (13.4-35.0) 08/19/17 03:46 Page % (Auto) 8.8 % (0.0-7.3) H 08/19/17 03:46 Eos % (Auto) 0.3 % (0.0-4.3) 08/19/17 03:46 Baso % (Auto) 0.6 % (0.0-1.8) 08/19/17 03:46 Lymph # 2.1 K/mm3 (1.2-5.4) 08/19/17 03:46 Page # 1.0 K/mm3 (0.0-0.8) H 08/19/17 03:46 Eos # 0.0 K/mm3 (0.0-0.4) 08/19/17 03:46 Baso # 0.1 K/mm3 (0.0-0.1) 08/19/17 03:46 Seg Neutrophils % 71.9 % (40.0-70.0) H 08/19/17 03:46 Seg Neutrophils # 8.1 K/mm3 (1.8-7.7) H 08/19/17 03:46 Sodium 138 mmol/L (137-145) 08/20/17 05:27 Potassium 4.3 mmol/L (3.6-5.0) 08/20/17 05:27 Chloride 96.0 mmol/L (98-107) L 08/20/17 05:27 Carbon Dioxide 27 mmol/L (22-30) 08/20/17 05:27 Anion Gap 19 mmol/L 08/20/17 05:27 BUN 11 mg/dL (7-17) 08/20/17 05:27 Creatinine 1.1 mg/dL (0.7-1.2) 08/20/17 05:27 Estimated GFR 60 ml/min 08/20/17 05:27 BUN/Creatinine Ratio 10 % 08/20/17 05:27 Glucose 166 mg/dL (65-100) H 08/20/17 05:27 POC Glucose 190 (70-105) H 08/20/17 11:38 Lactic Acid 1.30 mmol/L (0.7-2.0) 08/18/17 11:12 Calcium 9.1 mg/dL (8.4-10.2) 08/20/17 05:27 Total Bilirubin 0.20 mg/dL (0.1-1.2) 08/18/17 05:27 AST 12 units/L (5-40) 08/18/17 05:27 ALT 9 units/L (7-56) 08/18/17 05:27 Alkaline Phosphatase 104 units/L (35-129) 08/18/17 05:27 Total Protein 7.4 g/dL (6.3-8.2) 08/18/17 05:27 Albumin 3.9 g/dL (3.9-5) 08/18/17 05:27 Albumin/Globulin Ratio 1.1 % 08/18/17 05:27 Lipase 13 units/L (13-60) 08/18/17 05:27 Urine Color Yellow (Yellow) 08/18/17 09:09 Urine Turbidity Clear (Clear) 08/18/17 09:09 Urine pH 5.0 (5.0-7.0) 08/18/17 09:09 Ur Specific [place] 1.012 (1.003-1.030) 08/18/17 09:09 Urine Protein 30 mg/dl mg/dL (Negative) 08/18/17 09:09 Urine Glucose (UA) 50 mg/dL (Negative) 08/18/17 09:09 Urine Ketones Neg mg/dL (Negative) 08/18/17 09:09 Urine Blood Sm (Negative) 08/18/17 09:09 Urine Nitrite Neg (Negative) 08/18/17 09:09 Urine Bilirubin Neg (Negative) 08/18/17 09:09 Urine Urobilinogen < 2.0 mg/dL (<2.0) 08/18/17 09:09 Ur Leukocyte Esterase Tr (Negative) 08/18/17 09:09 Urine WBC (Auto) 5.0 /HPF (0.0-6.0) 08/18/17 09:09 Urine RBC (Auto) 6.0 /HPF (0.0-6.0) 08/18/17 09:09 U Epithel Cells (Auto) 6.0 /HPF (0-13.0) 08/18/17 09:09 Urine Bacteria (Auto) 2+ /HPF (Negative) 08/18/17 09:09 Urine Mucus Few /HPF 08/18/17 09:09
[2017-08-20] MEDS: BENADRYL PO SCH ×2 (20:56→22:00)
[2017-08-20 20:57] VITALS: BP 153/70
--- NOTE | 2017-08-21 10:20 | Discharge Summary ---
Providers - Providers Date of Admission: 08/18/17 11:00 Date of discharge: 08/20/17 Attending physician: JOSE A NAZARIO MD 08/20/17 10:30 Consult to Physician [CONS] Routine Consulting Provider: MICHAEL ROYAL Reason For Exam: diverticulitis Place consult to:: GI Primary care physician: JAKE FERNANDEZ Hospitalization Reason for admission: Diverticulitis Condition: Stable Pertinent studies: CT abdomen Diverticulitis of the sigmoid colon. Hospital course: Patient is a 66 years old female with past medical history of hypertension, diabetes mellitus, congestive heart failure and [place] 4 who prsents to the emergency room for left lower quadrant abdominal pain,nausea and vomiting. The patient states that for the past five days she has felt bloated and has had a decrease in appetite. Two days ago she began having intermittent abdominal pain that initially felt like gas pains but it has now progressed to being nearly constant. Since yesterday she has had severe nausea and has had 4 episodes of bilious vomiting despite not having taken anything by mouth in over 24 hours. Her last bowel movement was over four days ago. She has a history of intermittent constipation but never with this level of pain, the vomiting, or the bloating. She has a history of diverticulitis. Initially, when she would eat the pain would increase but she has not eaten anything for over 24 hours. Vomiting is the only thing that seems to provide some minimal relief. Currently , the pain is described as a constant dull, diffuse pain that intermittently becomes sharp and well localized. The sharp pain tends to occur in different locations at different times. The intensity of the pain has been increasing over the past two days and on pain scale she now rates the pain at 8 out of 10. She denies a recent history of fever, jaundice, pruritis, diarrhea, hemoptysis, melena, or hematochezia. She denies a known history of hemorrhoids, colon cancer , peptic ulcer disease, gastritis, acid reflux, gall bladder disease or cholelithiasis. She denies a history of smoking or alcohol. Patient was admitted and was treated with antibiotics, IV fluids, nothing by mouth, and was on morphine. Patient become drowsy because of the morphine and her saturation was in the upper 80s, on intranasal O2 despite that the patient wants to get more morphine. I have explained the risks and benefits and patient agreed to continue with the ordered morphine. When I come the next morning her daughter took her AMA. GI was consulted. Disposition: [id number] LEFT AGAINST MED ADVICE Time spent for discharge: 31 minutes - Discharge Diagnoses (1) Diverticulitis Status: Acute (2) Obesity (BMI 30.0-34.9) Status: Acute (3) HTN (hypertension) Status: Acute (4) Diabetes Status: Acute (5) History of [place] (myocardial infarction) Status: Acute Core Measure Documentation - Palliative Care Palliative Care/ Comfort Measures: Not Applicable - Core Measures Any of the following diagnoses?: none Exam - Physical Exam Narrative exam: Patient left overnight. - Constitutional Vitals: Temp Pulse Resp BP Pulse Ox 98.4 F 84 18 153/70 96 08/20/17 19:52 08/20/17 13:05 08/20/17 19:52 08/20/17 20:58 08/20/17 13:05 Plan Activity: no restrictions Weight Bearing Status: Full Weight Bearing Diet: other (Patient left AMA) Follow up with: JAKE FERNANDEZ MD [Primary Care Provider] - 3-5 Days Forms: AMA Form
--- NOTE | 2017-08-31 11:13 | Query-Infection ---
Dear ____Kyaw Date:___08/31/17 Marketing Outreach Coordinator/CDS:____Reji Phone#:___[phone] Exercise your independent professional judgment when responding to this query. Questions asked do not imply a particular answer is desired or expected. We greatly appreciate your clarification on this issue. Clinical Documentation States: 66 year old female was admitted on 08/18/17 The discharge summary (Dr. Card) states " Patient is a 66 years old female with past medical history of hypertension, diabetes mellitus, congestive heart failure and [place] 4 who prsents to the emergency room for left lower quadrant abdominal pain,nausea and vomiting. Disposition: LEFT AGAINST MED ADVICE - Discharge Diagnoses (1) Diverticulitis " WBC: 12.5 Respiratory rate: 22 Pulse rate: 103 Clinical findings show: (please check applicable parameters) Infection, known /suspected, with some of the following indicators; Specify the infection: 3 General parameters [ ] Fever (core temp >38.30C or 100.40F) [ ] Hypothermia (core temp <36C) [x ] Heart rate >90 bpm [x ] Tachypnea: >20 bpm or pCO2 < 32 mmHg [ ] Altered mental status [ ] Significant edema / +ve fluid balance (>20 ml/kg 24 h) [ ] Hyperglycemia (Bl. glucose >110 mg/dl) w/o diabetes Inflammatory parameters [ x] Leukocytosis (white blood cell count >12,000/l) [ ] Leukopenia (white blood cell count <4,000/l) [ ] Bandemia (immature WBC > 10%) [ ] Leucocyte Left Shift [ ] Plasma procalcitonin>2 SD above the normal value Hemodynamic and tissue perfusion parameters [ ] Arterial hypotension(SBP <90 mmHg, MAP <70 mmHg,or a SBP drop >40 mmHg in adults) [ ] Hyperlactatemia (>3 mmol/l) [ ] Anion Gap (> 11mEG/l) [ ] Decreased capillary refill or mottling Organ dysfunction parameters [ ] Arterial hypoxemia (PaO2/FIO2 <300) [ ] Creatinine increase =0.5 mg/dl [ ] Acute oliguria (urine output <0.5 ml | kg |h or 45 mM/l for at least 2 hrs) [ ] Coagulation abnormalities (INR >1.5 or activated partial thromboplastin time >60 s) [ ] Ileus (absent malcolm wel sounds) [ ] Thrombocytopenia (platelet count <100,000/l) [ ] Hyperbilirubinemia (plasma total bilirubin >4 mg/dl) According to the clinical indications above, can Bacteremia be further specified? If so, please indicate below and in your Progress Notes and/ or Discharge Summary. Indicate if the condition was present on admission. PHYSICIAN RESPONSE: [ x] Sepsis [ ] Severe Sepsis [ ] Septic Shock [ ] Septicemia [ ] Sepsis now resolved [ ] SIRS due to non-infectious cause with organ dysfunction [ ] SIRS due to non-infectious cause without organ dysfunction [ ] Other: [ ] Comment/Explanation: Present on Admission: [ x] Yes (Y) [ ] Clinically undeterminable (W) [ ] No (N) [ ] Ruled Out Please also document response in your Progress Notes and/or Discharge Summary and indicate if the condition was present on admission Notes: SIRS/ SIRS WITH ORGAN DYSFUNCTION Systemic inflammatory response syndrome (SIRS) generally refers to the systemic response to trauma/umanzor or other insult such as Acute Myocardial Infarction, Acute Pancreatitis, and Major Surgery with symptoms including fever, tachycardia , tachypnea, and leukocytosis (1). BACTEREMIA Presence of viable bacteria in the circulating blood (2). This term is reserved for patients that do not manifest above SIRS response. SEPTICEMIA Generally refers to a systemic disease associated with the presence of pathological microorganisms or toxins in the blood, which can include bacteria, viruses, fungi or other organisms (1). SEPSIS Generally refers to SIRS due infection (1). SEVERE SEPSIS Generally refers to sepsis associated with acute organ dysfunction (1). SEPTIC SHOCK Generally refers to circulatory failure associated with severe sepsis (2), and defined as hypotension or hypoperfusion despite adequate fluid resuscitation (1 hour) (3). REFERENCES: 1. [employer] [employer]/Society of Critical Care Medicine Consensus Conference. Definitions for sepsis and organ failure and guidelines for the use of innovative therapies in sepsis. Critical Care Med 1992;20:864 - 74. 2. Jimmy trejo MM, Mark SRINIVASAN, Zachary GINNY, Portillo E, Kevin D, José Manuel D, Suazo J, [place] SM , Nick JL, Hellen G; International Sepsis Definitions Conference. 2001 SCCM/ESICM/ACCP/ATS/SIS International Sepsis Definitions Conference. Intensive Care Med. 2002;29(4):530-8. Epub 2002Nov 29. Review. PubMed PMID:[id number] 3. ICD-9-CM Official Guidelines for Coding and Reporting 4. Medscape Drugs, Diseases and Procedures references 5. [employer] Textbook of Internal Medicine. 18th Edition MTDD
== END 2017-08-20 22:00 | disposition left against medical advice (07) | DRG 872 ==
LOC: ED 03:36 → 2B-ACE 11:00
PROVIDERS: ADMIT Internal Medicine; ATTEND Internal Medicine
DX: A41.9 Sepsis, unspecified organism (principal); K57.32 Diverticulitis of large intestine without perforation or abscess without bleeding; E87.1 Hypo-osmolality and hyponatremia; I11.0 Hypertensive heart disease with heart failure; D72.829 Elevated white blood cell count, unspecified; E11.9 Type 2 diabetes mellitus without complications; E66.9 Obesity, unspecified; I25.2 Old myocardial infarction; Z79.899 Other long term (current) drug therapy; Z79.51 Long term (current) use of inhaled steroids; Z83.3 Family history of diabetes mellitus; Z82.49 Family history of ischemic heart disease and other diseases of the circulatory system; Z95.1 Presence of aortocoronary bypass graft; Z68.30 Body mass index [BMI] 30.0-30.9, adult
CPT/HCPCS: 36415; 74000; 74177; 80048; 80053; 81001; 82140; 82962; 83690; 85025; 85027; 87040; 93005; 93010; 96365; 96375; 96376; J0360; J1650; J1815; J1885; J1956; J2270; J2405; J2543; Q0162; Q9967

== ENCOUNTER 2019-03-03 20:39 | Inpatient (IN) | payer MEDICARE ==
[2019-03-03] MEDS ORDERED: CARDIZEM ONE (20:51)
[2019-03-03] MEDS ORDERED: SUBLIMAZE IV ONE (20:54)
[2019-03-03] MEDS ORDERED: ZOFRAN IV ONE (20:54)
[2019-03-03] MEDS ORDERED: ASPIRIN PO ONE (20:55)
[2019-03-03] MEDS ORDERED: CARDIZEM IV ONE (20:58)
[2019-03-03] MEDS ORDERED: NITRO-BID 2% TP ONE (20:58)
--- NOTE | 2019-03-03 21:00 | Emergency Department Report ---
HPI - General Chief Complaint: Chest Pain Time Seen by Provider: 03/03/19 20:50 - HPI HPI: Room 19 The patient is a 68-year-old female presenting with a chief complaint of chest pain. The patient states that approximately 18:00 this morning she developed substernal left sided chest pain has been constant and sharp in nature associated with shortness of breath, diaphoresis and nausea without vomiting. The patient currently gets her chest pain score of "12/10." Location: [See above] Duration: [See above] Quality: [See above] Severity: [See above] Modifying factors: [see above] Context: [see above] Mode of transportation: [not driving] ED Past Medical Hx - Past Medical History Hx Hypertension: Yes Hx Heart Attack/AMI: Yes Hx Congestive Heart Failure: Yes Hx Diabetes: Yes Hx Arthritis: Yes (BL knee) Hx HIV: No - Surgical History Hx Open Heart Surgery: Yes (CABG x3) Additional Surgical History: hysterectomy - Family History Family history: no significant - Social History Smoking Status: Former Smoker (none since 1980) Substance Use Type: None (denies illicit drug use) - Medications Home Medications: Home Medications Medication Instructions Recorded Confirmed Last Taken Type Glimepiride [Amaryl] 2 mg PO QAM 07/13/15 03/03/19 Unknown History Tizanidine HCl [tiZANidine] 4 mg PO DAILY 07/13/15 03/03/19 Unknown History Furosemide [Lasix TAB] 40 mg PO QDAY 08/18/17 03/03/19 Unknown History HYDROcodone/APAP 7.5-325 [[place] 1 tab PO Q6H 08/18/17 03/03/19 Unknown History 7.5-325 mg TAB] cloNIDine [Catapres] 0.1 mg PO BID 08/18/17 03/03/19 Unknown History ALPRAZolam 1 mg PO PRN 03/03/19 03/03/19 Unknown History Carvedilol 3.125 mg PO DAILY 03/03/19 03/03/19 Unknown History Irbesartan 150 mg PO DAILY 03/03/19 03/03/19 Unknown History Nitroglycerin 0.4 mg SL PRN 03/03/19 03/03/19 03/03/19 History Omeprazole 40 mg PO BID 03/03/19 03/03/19 Unknown History Ondansetron TAB 4 mg PO PRN 03/03/19 03/03/19 Unknown History Ranitidine HCl 150 mg PO BID 03/03/19 03/03/19 Unknown History Rosuvastatin Calcium 40 mg PO DAILY 03/03/19 03/03/19 Unknown History Vitamin D2 50,000 units PO Q7D 03/03/19 03/03/19 Unknown History amLODIPine 10 mg PO DAILY 03/03/19 03/03/19 Unknown History ED Review of Systems ROS: Stated complaint: CHEST PAIN Other details as noted in HPI Constitutional: diaphoresis Eyes: denies: eye pain ENT: denies: throat pain Respiratory: shortness of breath Cardiovascular: chest pain Endocrine: no symptoms reported Gastrointestinal: nausea. denies: vomiting Genitourinary: denies: dysuria Musculoskeletal: denies: back pain Neurological: denies: headache Physical Exam - Physical Exam Physical Exam: GENERAL: The patient is well-developed well-nourished female lying on stretcher appearing to be in moderate discomfort. [] HEENT: Normocephalic. Atraumatic. Extraocular motions are intact. Patient has moist mucous membranes. NECK: Supple. Trachea midline CHEST/LUNGS: Clear to auscultation. There is no respiratory distress noted. HEART/CARDIOVASCULAR: Regular. There is no tachycardia. There is no gallop rub or murmur. ABDOMEN: Abdomen is soft, nontender. Patient has normal bowel sounds. There is no abdominal distention. SKIN: There is no rash. There is no edema. There is no diaphoresis. NEURO: The patient is awake, alert, and oriented. The patient is cooperative. The patient has normal speech MUSCULOSKELETAL: There is no evidence of acute injury. ED Medical Decision Making - Lab Data Result diagrams: 03/03/19 20:58 03/03/19 20:58 Laboratory Tests 03/03/19 03/03/19 03/03/19 20:58 20:58 20:58 WBC 9.7 RBC 4.51 Hgb 12.5 Hct 38.6 MCV 86 MCH 28 MCHC 33 RDW 20.1 H Plt Count 269 Lymph % (Auto) 37.5 H [place] % (Auto) 10.0 H Eos % (Auto) 1.4 Baso % (Auto) 0.6 Lymph # 3.6 [place] # 1.0 H Eos # 0.1 Baso # 0.1 Seg Neutrophils % 50.5 Seg Neutrophils # 4.9 PT 13.0 INR 1.01 APTT 30.3 Sodium 143 Potassium 3.9 Chloride 104.9 Carbon Dioxide 27 Anion Gap 15 BUN 10 Creatinine 1.2 Estimated GFR 54 BUN/Creatinine Ratio 8 Glucose 100 Calcium 8.9 Total Creatine Kinase 40 CK-MB (CK-2) 2.4 CK-MB (CK-2) Rel Index 6.0 H Troponin T < 0.010 NT-Pro-B Natriuret Pep 516.6 - EKG Data -: EKG Interpreted by Me Rate: tachycardia (136 bpm) - EKG Data When compared to previous EKG there are: previous EKG unavailable Interpretation: other (A. fib with RVR) - Radiology Data Radiology results: image reviewed (chest x-ray) interpreted by me: Chest x-ray--opacity right lower lobe possible early pleural effusion, hilar fullness - Differential Diagnosis ACS, pericarditis, GERD, A. fib with RVR Critical care attestation.: If time is entered above; I have spent that time in minutes in the direct care of this critically ill patient, excluding procedure time. ED Disposition Clinical Impression: Chest pain, Atrial fibrillation with rapid ventricular response Disposition: DC-09 OP ADMIT IP TO THIS HOSP Is pt being admited?: Yes Does the pt Need Aspirin: Yes Condition: Fair Instructions: Chest Pain (ED) Time of Disposition: 21:58 (hospitalist paged (Dr Carcamo))
[2019-03-03 21:18] LABS: Basophils # (Auto) 0.1 K/mm3 (0.0-0.1); Basophils % (Auto) 0.6 % (0.0-1.8); Eosinophils # (Auto) 0.1 K/mm3 (0.0-0.4); Eosinophils % (Auto) 1.4 % (0.0-4.3); Hematocrit 38.6 % (30.3-42.9); Hemoglobin 12.5 gm/dl (10.1-14.3); Lymphocytes # (Auto) 3.6 K/mm3 (1.2-5.4); Lymphocytes % (Auto) 37.5 % (13.4-35.0); Mean Corpuscular HGB Conc 33 % (30-34); Mean Corpuscular Volume 86 fl (79-97); Platelet Count 269 K/mm3 (140-440); Red Blood Count 4.51 M/mm3 (3.65-5.03)
[2019-03-03 21:19] LABS: Red Cell Distribution Width 20.1 % (13.2-15.2)
[2019-03-03 21:27] LABS: INR 1.01 (0.87-1.13)
[2019-03-03 21:28] LABS: Partial Thromboplastin Time 30.3 Sec. (24.2-36.6)
[2019-03-03 21:37] LABS: Creatine Kinase MB 2.4 ng/mL (0.0-4.0)
[2019-03-03 21:39] LABS: BUN/Creatinine Ratio 8; Blood Urea Nitrogen 10 mg/dL (7-17); Calcium 8.9 mg/dL (8.4-10.2); Hemolysis Index 11
[2019-03-03] MEDS ORDERED: CARDIZEM/D5W 100MG/100ML 100 MG/100 ML BAG IV SCH (22:00)
[2019-03-03] MEDS ORDERED: HEPARIN 10,000 UNITS/10 ML IV ONE (22:38)
[2019-03-03] MEDS ORDERED: ZOFRAN IV PRN (22:41)
[2019-03-03] MEDS ORDERED: TYLENOL PO PRN (22:41)
[2019-03-03] MEDS ORDERED: NITROSTAT SL PRN (22:43)
--- NOTE | 2019-03-03 22:54 | XRay Report ---
PROCEDURE: XR CHEST 1V AP TECHNIQUE: Chest radiograph single view. HISTORY: chest pain FINDINGS: Single frontal view of the chest was acquired and compared to the abdominal CT of August 18, 2017. There is cardiomegaly. Sternal wires attest to prior sternotomy. There is some right medial-basilar pulmonary consolidation which is new in comparison to the prior ex am, atelectasis versus pneumonia. There is no evidence of congestive heart failure. IMPRESSION: Stable cardiomegaly New right medial basilar consolidation atelectasis versus pneumonia This document is electronically signed by Chaz Morfin MD., March 03 2019 10:52:07 PM ET
[2019-03-03] MEDS ORDERED: HEPARIN/ 0.45% NACL-25,000 UNIT/500 ML 25,000 UNIT/500 ML BAG ONE (23:20)
[2019-03-03] MEDS ORDERED: HEPARIN 10,000 UNITS/10 ML ONE (23:21)
[2019-03-03] MEDS: HEPARIN/ 0.45% NACL-25,000 UNIT/500 ML 25,000 UNIT/500 ML BAG IV SCH (23:28)
[2019-03-03 23:56] LABS: Hematocrit 36.7 % (30.3-42.9)
[2019-03-04 00:07] LABS: INR 1.16 (0.87-1.13)
[2019-03-04 00:35] LABS: Partial Thromboplastin Time 146.5 Sec. (24.2-36.6)
[2019-03-04] MEDS: NITRO-BID 2% TP SCH ×5 (00:35→17:21)
[2019-03-04] MEDS: MORPHINE IV PRN ×2 (02:05→21:20)
--- NOTE | 2019-03-04 02:20 | History and Physical Report ---
CHIEF COMPLAINT: Chest pain. HISTORY OF PRESENT ILLNESS: The patient is a 68-year-old female who says she has been having left-sided chest pain that appears as a sharp pain, which started in the morning of 03/03/2019 and radiates to the left upper extremity. Pain was associated with shortness of breath, diaphoresis, nausea, but no vomiting. There is also history of associated dizziness. The patient rated her chest pain as 10/10 and said the pain was relieved with pain medication and nitroglycerin. Pain is not affected by movement or deep breaths. There is no history of cough or fever. There is also history of associated palpitation during the chest pain. PAST MEDICAL HISTORY: Pertinent for hypertension, coronary artery disease, status post myocardial infarction, congestive heart failure, diabetes mellitus, arthritis in both knees. PAST SURGICAL HISTORY: Pertinent for coronary artery bypass graft and hysterectomy. FAMILY HISTORY: Reviewed and noncontributory. SOCIAL HISTORY: The patient is a former cigarette smoker and quite smoking since 1980. The patient does not drink alcohol and does not use illicit drugs. MEDICATIONS: The patient is Amaryl 2 mg by mouth every morning, tizanidine 4 mg by mouth daily, Lasix 40 mg by mouth daily, [place] 7.5/325 mg 1 by mouth every 6 hours, Catapres 0.1 mg by mouth twice daily, alprazolam 1 mg by mouth as needed, frequency unknown, carvedilol 3.125 mg by mouth daily, irbesartan 150 mg by mouth daily, nitroglycerin sublingual 0.4 mg as needed for chest pain, omeprazole 40 mg by mouth twice daily, Zofran 4 mg by mouth as needed, frequency unknown, ranitidine 150 mg by mouth twice daily, rosuvastatin or Crestor 40 mg daily, vitamin D2 50,000 units by mouth every week, amlodipine 10 mg by mouth daily. ALLERGIES: There are no known drug allergies. REVIEW OF SYSTEMS: CONSTITUTIONAL: There is no fever, no chills. Diaphoresis is present. HEENT: There is no headache or sore throat. CARDIOVASCULAR SYSTEM: There is chest pain, but no orthopnea. RESPIRATORY SYSTEM: There is shortness of breath, but no cough. GASTROINTESTINAL SYSTEM: There is nausea, but no vomiting, no abdominal pain, diarrhea or constipation. NEUROLOGICAL SYSTEM: There is dizziness and no altered mental status. MUSCULOSKELETAL SYSTEM: There is no joint pain or swelling. DERMATOLOGICAL SYSTEM: There is no skin rash or itching. GENITOURINARY SYSTEM: There is no dysuria, hematuria, or flank pain. Rest of system review is normal. PHYSICAL EXAMINATION: GENERAL: At the time of exam, the patient was found to be alert, oriented x 3 and in mild distress due to chest pain. VITAL SIGNS: Shows normal temperature with pulse of 60, respirations 12, blood pressure 150/54, O2 sat of 97% on room air. HEENT: Showed pupils to be equal, round, reactive to light and accommodating. Extraocular muscles are intact. NECK: Supple with no JVD or carotid bruit. CARDIOVASCULAR SYSTEM: Show normal first and second heart sounds with no gallops or murmurs. RESPIRATORY SYSTEM: Show good air entry on both sides of the lungs with no abnormal breath sounds. GASTROINTESTINAL SYSTEM: Show abdomen to be full, soft, nontender with no organomegaly or rigidity. NEUROLOGICAL: Shows no focal deficit. MUSCULOSKELETAL SYSTEM: Showed no joint swelling or tenderness. DERMATOLOGICAL SYSTEM: Showed no skin rash. GENITOURINARY SYSTEM: Showing no costovertebral angle tenderness. PERTINENT LABORATORY AND IMAGING STUDIES: The patient had chest x-ray done that shows stable cardiomegaly and new right medial basilar consolidation, atelectasis versus pneumonia. Lab results, the patient had CBC done with normal white count, normal bilirubin and normal hematocrit with CBC differential showing elevated lymphocyte count of 37.5% and elevated monocyte count of 10%. The patient's coagulation studies show high PTT of 146.5 with normal PT and unremarkable INR. The rest of the patient's chemistry was unremarkable. Cardiac enzyme was unremarkable. The patient's brain natriuretic peptide level was normal. 12 lead EKG showed Atrial Fibrillation. DIAGNOSES: 1. Chest pain. 2. New onset atrial fibrillation. PLAN OF CARE: 1. The patient will be admitted to telemetry. 2. The patient will have cardiac enzymes involving troponin, total CK and CK-MB check every 6 hours x 2 more levels. 3. The patient will have cardiology consult with Dr. Blount who has seen the patient in the past because of chest pain with new onset atrial fibrillation. 4. The patient will be on IV heparin for anticoagulation for atrial fibrillation according to heparin protocol. 5. The patient will be on aspirin 325 mg by mouth daily and will be on IV morphine 2 mg every 3 hours as needed for pain. 6. The patient will be on nitro paste 1/2-inch to anterior chest wall q.i.d. and will be on Nitrostat 0.4 mg sublingual every 5 minutes as needed for breakthrough chest pain. 7. The patient will be on IV Zofran 4 mg every 8 hours for nausea and vomiting and will be on Tylenol 650 mg by mouth every 4 hours for fever and headache. 8. The patient will be on daily aspirin 325 mg by mouth. 9. The patient will be on oxygen by nasal cannula at 2 liters per minute. 10. The order to start Cardizem drip will be held because the patient's heart rate is under control now. JOB# [id number] [facility]/MIKEY ORONA
[2019-03-04 03:20] LABS: Creatine Kinase MB 10.2 ng/mL (0.0-4.0)
[2019-03-04 03:58] LABS: Chol/HDL Ratio 5.66 %
[2019-03-04 06:46] LABS: Creatine Kinase MB 12.6 ng/mL (0.0-4.0)
[2019-03-04] MEDS ORDERED: D50W (25GM) Syringe IV PRN (07:01)
--- NOTE | 2019-03-04 09:21 | Consultation ---
History of Present Illness Consult date: 03/04/19 Requesting physician: DEANDRA SUNSHINE Reason for consult: other (Atrial Fibrillation with RVR) History of present illness: PULMONARY/CCM CONSULT NOTE (Full dictation # [id number]) Please see dictated notes for full details Medications and Allergies Allergies Allergy/AdvReac Type Severity Reaction Status Date / Time No Known Allergies Allergy Verified 08/18/17 03:49 Home Medications Medication Instructions Recorded Confirmed Last Taken Type Glimepiride [Amaryl] 2 mg PO QAM 07/13/15 03/03/19 Unknown History Tizanidine HCl [tiZANidine] 4 mg PO DAILY 07/13/15 03/03/19 Unknown History Furosemide [Lasix TAB] 40 mg PO QDAY 08/18/17 03/03/19 Unknown History HYDROcodone/APAP 7.5-325 [[place] 1 tab PO Q6H 08/18/17 03/03/19 Unknown History 7.5-325 mg TAB] cloNIDine [Catapres] 0.1 mg PO BID 08/18/17 03/03/19 Unknown History ALPRAZolam 1 mg PO PRN 03/03/19 03/03/19 Unknown History Carvedilol 3.125 mg PO DAILY 03/03/19 03/03/19 Unknown History Irbesartan 150 mg PO DAILY 03/03/19 03/03/19 Unknown History Nitroglycerin 0.4 mg SL PRN 03/03/19 03/03/19 03/03/19 History Omeprazole 40 mg PO BID 03/03/19 03/03/19 Unknown History Ondansetron TAB 4 mg PO PRN 03/03/19 03/03/19 Unknown History Ranitidine HCl 150 mg PO BID 03/03/19 03/03/19 Unknown History Rosuvastatin Calcium 40 mg PO DAILY 03/03/19 03/03/19 Unknown History Vitamin D2 50,000 units PO Q7D 03/03/19 03/03/19 Unknown History amLODIPine 10 mg PO DAILY 03/03/19 03/03/19 Unknown History Apixaban [Eliquis] 5 mg PO Q12HR #60 tablet 03/05/19 Unknown Rx Aspirin [Aspirin BABY CHEW TAB] 81 mg PO QDAY #30 tab.chew 03/05/19 Unknown Rx ISOSORBIDE MONOnitrate [Imdur ER] 30 mg PO QDAY #30 tablet 03/05/19 Unknown Rx Ranolazine ER [Ranexa ER] 500 mg PO BID #60 tablet 03/05/19 Unknown Rx dilTIAZem HCl [Diltiazem 24Hr ER 120 mg PO DAILY #30 cap.er.24h 03/05/19 Unknown Rx (Cd)] Active Meds: Active Medications Acetaminophen (Tylenol) 650 mg PO Q4H PRN PRN Reason: Headache Aspirin (Aspirin) 325 mg PO QDAY [facility] Dextrose (D50w (25gm) Syringe) 50 ml IV PRN PRN PRN Reason: Hypoglycemia Diltiazem HCl (Cardizem/D5w 100mg/100ml) 100 mg in 100 mls @ 5 mls/hr IV TITR [facility]; Protocol Heparin Sodium/Sodium Chloride (Heparin/ 0.45% Nacl-25,000 Unit/500 Ml) 25,000 unit in 500 mls @ 27 mls/hr IV TITR [facility]; Protocol Last Titration: 03/04/19 06:46 Dose: 1,150 units/hr, 23 mls/hr Documented by: Insulin Human Regular (Humulin R) 0 units SUB-Q Q4H [facility]; Protocol Morphine Sulfate (Morphine) 2 mg IV Q3H PRN PRN Reason: Pain, Moderate (4-6) Last Admin: 03/04/19 02:05 Dose: 2 mg Documented by: Nitroglycerin (Nitro-Bid 2%) 0.5 inch TP QIDNTG [facility]; Protocol Last Admin: 03/04/19 06:52 Dose: 0.5 inch Documented by: Nitroglycerin (Nitrostat) 0.4 mg SL .Q5MIN PRN PRN Reason: Chest Pain Ondansetron HCl (Zofran) 4 mg IV Q8H PRN PRN Reason: Nausea And Vomiting Physical Examination Vital signs: Vital Signs Pulse Resp Pulse Ox 140 H 18 99 03/03/19 20:42 03/03/19 20:42 03/03/19 20:42 Results - Laboratory Findings CBC and BMP: 03/05/19 05:51 03/03/19 20:58 PT/INR, D-dimer PT 14.5 Sec. (12.2-14.9) 03/03/19 23:49 INR 1.16 (0.87-1.13) H 03/03/19 23:49 Abnormal lab findings: Abnormal Labs 03/03/19 03/03/19 03/03/19 20:58 20:58 23:49 RDW 20.1 H Lymph % (Auto) 37.5 H [place] % (Auto) 10.0 H [place] # 1.0 H INR 1.16 H APTT 146.5 H* Heparin Anti-Xa Level CK-MB (CK-2) CK-MB (CK-2) Rel Index 6.0 H Troponin T Cholesterol LDL Cholesterol Direct 03/04/19 03/04/19 03/04/19 00:51 05:33 05:33 RDW Lymph % (Auto) [place] % (Auto) [place] # INR APTT Heparin Anti-Xa Level 0.89 H CK-MB (CK-2) 10.2 H 12.6 H CK-MB (CK-2) Rel Index 11.2 H 12.3 H Troponin T 0.150 H* D 0.205 H* D Cholesterol 255 H LDL Cholesterol Direct 214 H
[2019-03-04] MEDS: ASPIRIN PO SCH (10:12)
[2019-03-04] MEDS: HumuLIN R SUB-Q SCH ×4 (10:21→21:26)
[2019-03-04] MEDS ORDERED: NORMODYNE IV PRN (11:00)
--- NOTE | 2019-03-04 11:04 | Consultation ---
History of Present Illness Consult date: 03/04/19 Consult reason: atrial fibrillation History of present illness: This is a 68 year old woman with an extensive cardiac history. Patient has a known history of resolving ischemic cardiomyopathy and coronary artery disease. She underwent coronary bypass several years ago with redo, SVG to OM, SVG to LAD and radial graft to OM, in 2007. Recent cardiac cath revealed mild to moderate LAD and OM graft disease recommended for medical therapy. Ejection fraction 45%. Patient was brought to this hospital with complaints of chest pain, found to be in rapid atrial fibrillation. This was treated with intravenous Diltiazem. Patient denies use of [id number] cold medications. Patient denies consumption of energy drinks or caffeinated drinks. There is no history of arrhythmias. TSH has not been checked. Patient has since reverted to sinus rhyt hm on telemetry. Cardiac consultation has been requested. Medications and Allergies Allergies Allergy/AdvReac Type Severity Reaction Status Date / Time No Known Allergies Allergy Verified 08/18/17 03:49 Home Medications Medication Instructions Recorded Confirmed Last Taken Type Glimepiride [Amaryl] 2 mg PO QAM 07/13/15 03/03/19 Unknown History Tizanidine HCl [tiZANidine] 4 mg PO DAILY 07/13/15 03/03/19 Unknown History Furosemide [Lasix TAB] 40 mg PO QDAY 08/18/17 03/03/19 Unknown History HYDROcodone/APAP 7.5-325 [[place] 1 tab PO Q6H 08/18/17 03/03/19 Unknown History 7.5-325 mg TAB] cloNIDine [Catapres] 0.1 mg PO BID 08/18/17 03/03/19 Unknown History ALPRAZolam 1 mg PO PRN 03/03/19 03/03/19 Unknown History Carvedilol 3.125 mg PO DAILY 03/03/19 03/03/19 Unknown History Irbesartan 150 mg PO DAILY 03/03/19 03/03/19 Unknown History Nitroglycerin 0.4 mg SL PRN 03/03/19 03/03/19 03/03/19 History Omeprazole 40 mg PO BID 03/03/19 03/03/19 Unknown History Ondansetron TAB 4 mg PO PRN 03/03/19 03/03/19 Unknown History Ranitidine HCl 150 mg PO BID 03/03/19 03/03/19 Unknown History Rosuvastatin Calcium 40 mg PO DAILY 03/03/19 03/03/19 Unknown History Vitamin D2 50,000 units PO Q7D 03/03/19 03/03/19 Unknown History amLODIPine 10 mg PO DAILY 03/03/19 03/03/19 Unknown History Active Meds: Active Medications Acetaminophen (Tylenol) 650 mg PO Q4H PRN PRN Reason: Headache Aspirin (Aspirin) 325 mg PO QDAY [facility] Last Admin: 03/04/19 10:12 Dose: 325 mg Documented by: Dextrose (D50w (25gm) Syringe) 50 ml IV PRN PRN PRN Reason: Hypoglycemia Diltiazem HCl (Cardizem/D5w 100mg/100ml) 100 mg in 100 mls @ 5 mls/hr IV TITR [facility]; Protocol Heparin Sodium/Sodium Chloride (Heparin/ 0.45% Nacl-25,000 Unit/500 Ml) 25,000 unit in 500 mls @ 27 mls/hr IV TITR [facility]; Protocol Last Titration: 03/04/19 06:46 Dose: 1,150 units/hr, 23 mls/hr Documented by: Insulin Human Regular (Humulin R) 0 units SUB-Q Q4H [facility]; Protocol Last Admin: 03/04/19 10:21 Dose: Not Given Documented by: Morphine Sulfate (Morphine) 2 mg IV Q3H PRN PRN Reason: Pain, Moderate (4-6) Last Admin: 03/04/19 02:05 Dose: 2 mg Documented by: Nitroglycerin (Nitro-Bid 2%) 0.5 inch TP QIDNTG [facility]; Protocol Last Admin: 03/04/19 10:12 Dose: 0.5 inch Documented by: Nitroglycerin (Nitrostat) 0.4 mg SL .Q5MIN PRN PRN Reason: Chest Pain Ondansetron HCl (Zofran) 4 mg IV Q8H PRN PRN Reason: Nausea And Vomiting Physical Examination Vital Signs Pulse Resp Pulse Ox 140 H 18 99 03/03/19 20:42 03/03/19 20:42 03/03/19 20:42 General appearance: no acute distress HEENT: Positive: PERRL Neck: Positive: trachea midline Cardiac: Positive: Reg Rate and Rhythm Lungs: Positive: Decreased Breath Sounds Neuro: Positive: Grossly Intact Extremities: Absent: edema Results 03/03/19 23:49 03/03/19 20:58 Cardiac Enzymes 03/03/19 03/04/19 03/04/19 Range/Units 20:58 00:51 05:33 CK-MB (CK-2) 2.4 10.2 H 12.6 H (0.0-4.0) ng/mL Coagulation 03/03/19 03/03/19 Range/Units 20:58 23:49 PT 13.0 14.5 (12.2-14.9) Sec. INR 1.01 1.16 H (0.87-1.13) APTT 30.3 146.5 H* (24.2-36.6) Sec. Lipids 03/04/19 Range/Units 00:51 Triglycerides 74 (2-149) mg/dL Cholesterol 255 H (50-199) mg/dL HDL Cholesterol 45 (40-59) mg/dL Cholesterol/HDL Ratio 5.66 % CBC 03/03/19 03/03/19 Range/Units 20:58 23:49 WBC 9.7 (4.5-11.0) K/mm3 RBC 4.51 (3.65-5.03) M/mm3 Hgb 12.5 12.0 (10.1-14.3) gm/dl Hct 38.6 36.7 (30.3-42.9) % Plt Count 269 265 (140-440) K/mm3 Lymph # 3.6 (1.2-5.4) K/mm3 [place] # 1.0 H (0.0-0.8) K/mm3 Eos # 0.1 (0.0-0.4) K/mm3 Baso # 0.1 (0.0-0.1) K/mm3 Comprehensive Metabolic Panel 03/03/19 Range/Units 20:58 Sodium 143 (137-145) mmol/L Potassium 3.9 (3.6-5.0) mmol/L Chloride 104.9 (98-107) mmol/L Carbon Dioxide 27 (22-30) mmol/L BUN 10 (7-17) mg/dL Creatinine 1.2 (0.7-1.2) mg/dL Glucose 100 (65-100) mg/dL Calcium 8.9 (8.4-10.2) mg/dL Assessment and Plan Atrial fibrillation reverted to sinus rhythm Hx of CAD with CABG with redo in 2007 C 02/2019 at [facility] reports LAD and OM graft disease recommended for medical therapy. Ejection fraction 45%. Diabetes Hypertension Resolving Ischemic cardiomyopathy
--- NOTE | 2019-03-04 16:07 | Progress Note ---
Assessment and Plan Assessment and plan: Chest pain with elevated cardiac enzymes - Cardiology consulted - Patient is on heparin drip A. fib - Patient is on Cardizem drip and heparin drip - patient is in sinus rhythm Disposition - Continue inpatient care - We'll follow cardiology recommendation Hypertensive urgency - Continue on medications and on labetelol PRN Disposition - continue inpatient care and will follow cardiology recommendations. History Interval history: Patient was seen and evaluated this morning, patient's chest pain subsided. Hospitalist Physical - Physical exam Narrative exam: Not in cardiopulmonary distress. The patient is obese. Vital signs as documented. Head exam is unremarkable. No scleral icterus . Neck is without jugular venous distension, thyromegaly, or carotid bruits. Lungs are clear to auscultation. Cardiac exam reveals regular rate and Rhythm. First and second heart sounds normal. No murmurs, rubs or gallops. Abdominal exam reveals normal bowel sounds, no masses, no organomegaly and no aortic enlargement. Extremities are nonedematous and both femoral and pedal pulses are normal. MATERIALS SPECIALIST: Alert and oriented 3. No focal weakness. - Constitutional Vitals: Temp Pulse Resp BP Pulse Ox 98.1 F 74 20 170/60 95 03/04/19 15:59 03/04/19 15:59 03/04/19 15:59 03/04/19 15:59 03/04/19 15:59 General appearance: Present: no acute distress Results - Labs CBC & Chem 7: 03/03/19 23:49 03/03/19 20:58 Labs: Laboratory Last Values WBC 9.7 K/mm3 (4.5-11.0) 03/03/19 20:58 RBC 4.51 M/mm3 (3.65-5.03) 03/03/19 20:58 Hgb 12.0 gm/dl (10.1-14.3) 03/03/19 23:49 Hct 36.7 % (30.3-42.9) 03/03/19 23:49 MCV 86 fl (79-97) 03/03/19 20:58 MCH 28 pg (28-32) 03/03/19 20:58 MCHC 33 % (30-34) 03/03/19 20:58 RDW 20.1 % (13.2-15.2) H 03/03/19 20:58 Plt Count 265 K/mm3 (140-440) 03/03/19 23:49 Lymph % (Auto) 37.5 % (13.4-35.0) H 03/03/19 20:58 [place] % (Auto) 10.0 % (0.0-7.3) H 03/03/19 20:58 Eos % (Auto) 1.4 % (0.0-4.3) 03/03/19 20:58 Baso % (Auto) 0.6 % (0.0-1.8) 03/03/19 20:58 Lymph # 3.6 K/mm3 (1.2-5.4) 03/03/19 20:58 [place] # 1.0 K/mm3 (0.0-0.8) H 03/03/19 20:58 Eos # 0.1 K/mm3 (0.0-0.4) 03/03/19 20:58 Baso # 0.1 K/mm3 (0.0-0.1) 03/03/19 20:58 Seg Neutrophils % 50.5 % (40.0-70.0) 03/03/19 20:58 Seg Neutrophils # 4.9 K/mm3 (1.8-7.7) 03/03/19 20:58 PT 14.5 Sec. (12.2-14.9) 03/03/19 23:49 INR 1.16 (0.87-1.13) H 03/03/19 23:49 APTT 146.5 Sec. (24.2-36.6) H* 03/03/19 23:49 Heparin Anti-Xa Level 0.71 U.I./ml (0.3-0.7) H 03/04/19 13:06 Sodium 143 mmol/L (137-145) 03/03/19 20:58 Potassium 3.9 mmol/L (3.6-5.0) 03/03/19 20:58 Chloride 104.9 mmol/L (98-107) 03/03/19 20:58 Carbon Dioxide 27 mmol/L (22-30) 03/03/19 20:58 15 mmol/L 03/03/19 20:58 BUN 10 mg/dL (7-17) 03/03/19 20:58 1.2 mg/dL (0.7-1.2) 03/03/19 20:58 Estimated GFR 54 ml/min 03/03/19 20:58 8 % 03/03/19 20:58 Glucose 100 mg/dL (65-100) 03/03/19 20:58 POC Glucose 125 (70-105) H 03/04/19 11:34 Calcium 8.9 mg/dL (8.4-10.2) 03/03/19 20:58 Magnesium 2.00 mg/dL (1.7-2.3) 03/04/19 13:06 102 units/L (30-135) 03/04/19 05:33 CK-MB (CK-2) 12.6 ng/mL (0.0-4.0) H 03/04/19 05:33 CK-MB (CK-2) Rel Index 12.3 (0-4) H 03/04/19 05:33 0.205 ng/mL (0.00-0.029) H* D 03/04/19 05:33 NT-Pro-B Natriuret Pep 516.6 pg/mL (0-900) 03/03/19 20:58 Triglycerides 74 mg/dL (2-149) 03/04/19 00:51 Cholesterol 255 mg/dL (50-199) H 03/04/19 00:51 214 mg/dL (50-130) H 03/04/19 00:51 45 mg/dL (40-59) 03/04/19 00:51 5.66 % 03/04/19 00:51 TSH 1.270 mlU/mL (0.270-4.200) 03/04/19 13:06 Free T4 0.99 ng/dL (0.76-1.46) 03/04/19 13:06 Active Medications - Current Medications Current Medications: Generic Name Dose Route Start Last Admin Trade Name Freq PRN Reason Stop Dose Admin Acetaminophen 650 mg 03/03/19 22:41 Tylenol PO Q4H PRN Headache Aspirin 325 mg 03/04/19 10:00 03/04/19 10:12 Aspirin PO 325 mg QDAY HARVINDER Administration Dextrose 50 ml 03/04/19 07:01 D50w (25gm) Syringe IV PRN PRN Hypoglycemia Diltiazem HCl 30 mg 03/04/19 18:00 Cardizem PO Q6HR HARVINDER Heparin Sodium/Sodium Chloride 25,000 unit in 500 mls @ 27 mls/hr 03/03/19 23:00 03/04/19 06:46 Heparin/ 0.45% Nacl-25,000 Unit/500 Ml IV 1,150 units/hr TITR HARVINDER 23 mls/hr Titration Protocol 1,350 UNITS/HR Insulin Human Regular 0 units 03/04/19 08:00 03/04/19 12:31 Humulin R SUB-Q Not Given Q4H [facility] Protocol Labetalol HCl 10 mg 03/04/19 11:00 03/04/19 12:31 Normodyne IV 10 mg Q4HR PRN Administration Hypertension Morphine Sulfate 2 mg 03/03/19 22:40 03/04/19 02:05 Morphine IV 2 mg Q3H PRN Administration Pain, Moderate (4-6) Nitroglycerin 0.5 inch 03/03/19 23:45 03/04/19 14:06 Nitro-Bid 2% TP 0.5 inch QIDNTG [facility] Administration Protocol Nitroglycerin 0.4 mg 03/03/19 22:43 Nitrostat SL .Q5MIN PRN Chest Pain Ondansetron HCl 4 mg 03/03/19 22:41 Zofran IV Q8H PRN Nausea And Vomiting
[2019-03-04] MEDS: CARDIZEM PO SCH ×2 (17:22→23:21)
[2019-03-04] MEDS: HEPARIN/ 0.45% NACL-25,000 UNIT/500 ML 25,000 UNIT/500 ML BAG IV SCH ×2 (17:33→17:35)
[2019-03-04] MEDS: IMDUR PO SCH (21:19)
[2019-03-04] MEDS: COREG PO SCH (21:19)
[2019-03-05] MEDS: CARDIZEM PO SCH ×3 (05:20→17:58)
[2019-03-05] MEDS: HumuLIN R SUB-Q SCH ×5 (05:24→17:57)
[2019-03-05 06:12] LABS: Hematocrit 34.3 % (30.3-42.9); Hemoglobin 11.4 gm/dl (10.1-14.3)
[2019-03-05] MEDS: NITRO-BID 2% TP SCH ×2 (07:48→09:38)
--- NOTE | 2019-03-05 09:23 | Progress Note ---
Assessment and Plan Atrial fibrillation reverted to sinus rhythm; on Diltiazem for suppression. normal TSH Chest pain Hx of CAD with CABG with redo in 2007 [facility] 02/2019 at [facility] reports LAD and OM graft disease recommended for medical therapy. Ejection fraction 45%. The right coronary artery was chronically totally occluded, filled by faint collaterals from the left coronary system. Diabetes Hypertension Resolving Ischemic cardiomyopathy We will recommend triple therapy with eliquis, plavix and low dose aspirin. Continue medical therapy for paroxysmal atrial fibrillation and coronary artery disease. Patient is currently chest pain free and wishes to discharge home. Further ischemic evaluation with a cardiac cath will be scheduled as an outpatient. Stable for discharge home today. Subjective Date of service: 03/05/19 Interval history: Patient denies chest pain and shortness of breath. Wants to go home. Objective Vital Signs Temp Pulse Resp BP Pulse Ox 03/05/19 07:48 66 143/53 03/05/19 03:05 98.0 F 66 16 143/53 92 03/04/19 22:58 98.6 F 62 18 185/66 97 03/04/19 22:00 68 03/04/19 19:03 98.6 F 73 18 146/45 94 03/04/19 17:22 74 170/60 03/04/19 17:21 74 170/60 03/04/19 15:59 98.1 F 74 20 170/60 95 03/04/19 14:06 179/78 03/04/19 12:31 69 179/78 03/04/19 11:33 98.0 F 69 20 179/75 95 03/04/19 10:12 59 L 206/70 03/04/19 10:00 67 - Physical Examination General: No Apparent Distress HEENT: Positive: PERRL Neck: Positive: trachea midline Cardiac: Positive: Reg Rate and Rhythm Lungs: Positive: Decreased Breath Sounds Neuro: Positive: Grossly Intact Extremities: Absent: edema - Labs and Meds CBC 03/05/19 Range/Units 05:51 Hgb 11.4 (10.1-14.3) gm/dl Hct 34.3 (30.3-42.9) % Plt Count 273 (140-440) K/mm3
[2019-03-05] MEDS: COREG PO SCH (09:37)
[2019-03-05] MEDS: IMDUR PO SCH (09:37)
[2019-03-05] MEDS: ASPIRIN PO SCH (09:38)
--- NOTE | 2019-03-05 10:51 | Progress Note ---
Assessment and Plan Atrial fibrillation with rapid ventricular response. Acute respiratory distress as a result of #1 above. History of coronary artery disease, status post coronary artery bypass graft. Morbid obesity Possible CONNER Hyperlipidemia. Hypertension, poorly controlled. Diabetes. Arthritis. History of congestive heart failure. Elevated serum troponins. - supplemental oxygen as needed to keep sats > 90% - prn bronchodilators - anticoagulation for A-fib - fall precautions - rate control with cardizem - continue inpatient care and will follow cardiology recommendations. - outpatient PSG ... re-evaluate in am & prn Subjective Date of service: 03/05/19 Principal diagnosis: A-Fib with RVR; Acute respiratory distress; CAD; CHF; Morbid obesity; NSTEM Interval history: Patient is seen today for: Atrial fibrillation with rapid ventricular response; Acute respiratory distress; CAD; Morbid obesity; Possible CONNER; congestive heart failure; NSTEMI Seen and examined at bedside; 24hour events reviewed; nursing and respiratory care staff consulted; no adverse overnight events reported to me; resting peacefully in bed; feels better but still SOB; No N/V/F/C; no gross bleeding Objective Vital Signs - 12hr 03/04/19 03/05/19 03/05/19 22:58 03:05 07:48 Temperature 98.6 F 98.0 F Pulse Rate 62 66 66 Respiratory 18 16 Rate Blood Pressure 185/66 143/53 143/53 O2 Sat by Pulse 97 92 Oximetry 03/05/19 03/05/19 09:37 09:38 Temperature Pulse Rate 66 66 Respiratory Rate Blood Pressure 143/66 143/53 O2 Sat by Pulse Oximetry Constitutional: alert, other (elderly looking obese AAF with mildly increased resp effort at rest) Eyes: non-icteric ENT: oropharynx moist, other (mallampati 3) Neck: supple, no lymphadenopathy, other (large neck circumference) Effort: mildly labored Ascultation: Bilateral: diminished breath sounds, rhonchi Percussion: Bilateral: not dull Cardiovascular: irregular rhythm Gastrointestinal: normoactive bowel sounds, soft, non-tender, non-distended Integumentary: normal Extremities: no cyanosis, pulses normal, no ischemia or petechiae, edema Neurologic: normal mental status, non-focal exam (grossly), pupils equal and round, CN II-XII normal Psychiatric: mood appropriate, affect normal CBC and BMP: 03/05/19 05:51 03/03/19 20:58 ABG, PT/INR, D-dimer: PT/INR, D-dimer PT 14.5 Sec. (12.2-14.9) 03/03/19 23:49 INR 1.16 (0.87-1.13) H 03/03/19 23:49 Abnormal lab findings: Abnormal Labs 03/03/19 03/03/19 03/03/19 20:58 20:58 23:49 RDW 20.1 H Lymph % (Auto) 37.5 H [place] % (Auto) 10.0 H [place] # 1.0 H INR 1.16 H APTT 146.5 H* Heparin Anti-Xa Level POC Glucose CK-MB (CK-2) CK-MB (CK-2) Rel Index 6.0 H Troponin T Cholesterol LDL Cholesterol Direct 03/04/19 03/04/19 03/04/19 00:51 05:33 05:33 RDW Lymph % (Auto) [place] % (Auto) [place] # INR APTT Heparin Anti-Xa Level 0.89 H POC Glucose CK-MB (CK-2) 10.2 H 12.6 H CK-MB (CK-2) Rel Index 11.2 H 12.3 H Troponin T 0.150 H* D 0.205 H* D Cholesterol 255 H LDL Cholesterol Direct 214 H 03/04/19 03/04/19 03/04/19 11:34 13:06 16:59 RDW Lymph % (Auto) [place] % (Auto) [place] # INR APTT Heparin Anti-Xa Level 0.71 H POC Glucose 125 H 166 H CK-MB (CK-2) CK-MB (CK-2) Rel Index Troponin T Cholesterol LDL Cholesterol Direct 03/04/19 03/04/19 03/05/19 20:32 22:34 07:38 RDW Lymph % (Auto) [place] % (Auto) [place] # INR APTT Heparin Anti-Xa Level 0.71 H POC Glucose 195 H 207 H CK-MB (CK-2) CK-MB (CK-2) Rel Index Troponin T Cholesterol LDL Cholesterol Direct Chest x-ray: image reviewed Allied health notes reviewed: nursing
[2019-03-05] MEDS ORDERED: RANEXA ER PO SCH (11:00)
[2019-03-05] MEDS ORDERED: PLAVIX PO SCH (11:00)
--- NOTE | 2019-03-05 11:28 | Discharge Summary ---
Providers - Providers Date of Admission: 03/03/19 22:33 Date of discharge: 03/05/19 Attending physician: JOSE A NAZARIO MD 03/03/19 22:48 Consult to Physician [CONS] Routine Comment: Consulting Provider: PENNY TOMLINSON Physician Instructions: Reason For Exam: ICU ADMISSION FOR LEIGH ANN ON CARDIZEM DRIP 03/04/19 06:00 Consult to Physician [CONS] Routine Comment: Consulting Provider: TARA BENTON Physician Instructions: Reason For Exam: CHEST PAIN WITH ATRIAL FIBRILLATION Primary care physician: MARCUS OTT Hospitalization Reason for admission: chest pain, CAD, atrial fibrillation Condition: Stable Hospital course: This is a 68 year old woman with an extensive cardiac history. Patient has a known history of resolving ischemic cardiomyopathy and coronary artery disease. She underwent coronary bypass several years ago with redo, SVG to OM, SVG to LAD and radial graft to OM, in 2007. Recent cardiac cath revealed mild to moderate LAD and OM graft disease recommended for medical therapy. Ejection fraction 45%. Patient was brought to this hospital with complaints of chest pain, found to be in rapid atrial fibrillation. This was treated with intravenous Diltiazem. Patient denies use of [id number] cold medications. Patient denies consumption of energy drinks or caffeinated drinks. There is no history of arrhythmias.Patient has since reverted to sinus rhythm on telemetry. Patient was admitted to the floor and cardiology was consulted, patient started started with eliquis with the plan to follow the patient as an o/p. Cardiology recommended to discharge her home and will follow her in the office for revascularization. Please look Dr Benton's note for details. Patient's chest pain subsided and her medications were optimized. I gave her a script for her new medications. Patient's chest pain was subsided at the time of discharge. patient will see [facility] on 03/14. Patient was hemodynamically stable at the time of discharge. Disposition: - TO HOME OR SELFCARE Time spent for discharge: 32 minutes - Discharge Diagnoses (1) Atrial fibrillation with rapid ventricular response Status: Acute (2) Chest pain Status: Acute (3) Diabetes Status: Acute (4) HTN (hypertension) Status: Acute (5) History of IN (myocardial infarction) Status: Acute (6) Obesity (BMI 30.0-34.9) Status: Acute Core Measure Documentation - Palliative Care Palliative Care/ Comfort Measures: Not Applicable - Core Measures Any of the following diagnoses?: none Exam - Physical Exam Narrative exam: Not in cardiopulmonary distress. The patient is obese. Vital signs as documented. Head exam is unremarkable. No scleral icterus . Neck is without jugular venous distension, thyromegaly, or carotid bruits. Lungs are clear to auscultation. Cardiac exam reveals regular rate and Rhythm. First and second heart sounds normal. No murmurs, rubs or gallops. Abdominal exam reveals normal bowel sounds, no masses, no organomegaly and no aortic enlargement. Extremities are nonedematous and both femoral and pedal pulses are normal. DINING ROOM SUPERVISOR: Alert and oriented 3. No focal weakness. - Constitutional Vitals: Temp Pulse Resp BP Pulse Ox 98.0 F 66 16 143/53 92 03/05/19 03:05 03/05/19 09:38 03/05/19 03:05 03/05/19 09:38 03/05/19 03:05 Plan Activity: no restrictions Weight Bearing Status: Full Weight Bearing Diet: low cholesterol, low salt, diabetic Follow up with: DEANA GUERRACROWHEART MD BALTAZAR [Referring] - 3-5 Days Prescriptions: Aspirin [Aspirin BABY CHEW TAB] 81 mg PO QDAY #30 tab.chew dilTIAZem HCl [Diltiazem 24Hr ER (Cd)] 120 mg PO DAILY #30 cap.er.24h Apixaban [Eliquis] 5 mg PO Q12HR #60 tablet ISOSORBIDE MONOnitrate [Imdur ER] 30 mg PO QDAY #30 tablet Ranolazine ER [Ranexa ER] 500 mg PO BID #60 tablet
[2019-03-05] MEDS ORDERED: ELIQUIS PO SCH (11:30)
[2019-03-05 12:08] VITALS: BP 158/60
--- NOTE | 2019-03-05 22:47 | Consultation ---
PULMONARY CRITICAL CARE CONSULTING NOTE REQUESTING PHYSICIAN: Trevin Carcamo MD REASON FOR CONSULTATION: Atrial fibrillation with a rapid ventricular response. CHIEF COMPLAINT AND HISTORY OF PRESENT ILLNESS: As follows, the patient is a 68-year-old -French female with past medical history significant amongst other things for a diagnosis of congestive heart failure, who came to the Emergency Room complaining of left-sided chest pain, constant and sharp in nature, associated with shortness of breath and dyspnea on exertion. She had diaphoresis. She was nausea, no actual vomiting. She gave it a number of 12/10. She was evaluated in the Emergency Room. There was no evidence of ST elevation [place], but she was found to be essentially in atrial fibrillation with a rapid ventricular response, possibility of pericarditis. A decision was made to admit her to the Intensive Care Unit after she was started on an IV Cardizem drip. We were asked to assist with management. When I stopped by to see her, she was feeling better. She was seen in the Emergency Room and essentially, this is diagnosed as a new onset atrial fibrillation with a final goal to put her on oral anticoagulation for paroxysmal atrial fibrillation. There was concern for continued ischemia in the circumflex system which had severe stenosis as well as coronary artery bypass graft that is diffusely severely diseased. A consideration was going to be given for repeat angiography and revascularization. She denied any known bleeding diathesis. She denied in particular any hematochezia, melena, hematemesis, or hemoptysis. Denied history of a GI bleed. In terms of tobacco use/abuse history, she told me she is not a smoker, but she did smoke up until 1980. I was unable to quantify how much. This really is as much of the history of presentation as I have. PAST MEDICAL HISTORY: History of hypertension, coronary artery disease, history of congestive heart failure, history of diabetes, history of arthritis. PAST SURGICAL HISTORY: Status post coronary artery bypass grafting x 3 and status post hysterectomy. MEDICATIONS: She was on at the time I stopped by to see were reviewed. Pertinent medications include the following: Tylenol 650 mg p.o. q. 4 hours p.r.n. mild pain or headache, aspirin 325 mg p.o. daily, Cardizem drip was going initially had about 5 mg per hour, insulin via sliding scale, nitroglycerin 2% topical 0.5 inch patch q.i.d., morphine 2 mg IV q. 3 hours p.r.n. moderate pain and Zofran 4 mg IV q. 8 hours p.r.n. nausea and vomiting. ALLERGIES: No known drug allergies. DIET: Obese lady. Denies acute weight loss or gain in the preceding few weeks to months. FAMILY AND SOCIAL HISTORY: Lives in the community. No current alcohol, tobacco, or illicit drug use or abuse. She did smoke up until 1980. FAMILY HISTORY: Otherwise noncontributory. REVIEW OF SYSTEMS: No loss of consciousness. No new onset seizures. No new onset focal weakness. No gross hematochezia or melena. No gross hematuria or dysuria. Denies polydipsia or polyuria. Denies heat or cold intolerance or any suggestion of overt thyroid disease. Denies any new rash. She denies any new leg pain or swelling either unilaterally or bilaterally. Denies any seizures. Complete 13-system review of systems obtained. Pertinent positives and/or negatives as in body of history above, otherwise noncontributory. I should also mention she denies any acute emotional life events. No unexplained sadness or elation as may be consistent with judson or depression. PHYSICAL EXAMINATION: VITAL SIGNS: At presentation, she was afebrile, first temperature 98.2 degrees Fahrenheit, pulse was 140 at presentation, respiratory rate was 18, blood pressure was 167/107. O2 sats were 99%, inspired oxygen concentration at that time was not recorded. When I stopped by to see her, her O2 sats were 99% on 2 liters nasal cannula. GENERAL: Elderly looking obese -French female. Normocephalic atraumatic, talking to me in full sentences with mildly increased respiratory effort at rest. HEAD, EYES, EARS, NOSE AND THROAT: She was anicteric, no conjunctival erythema. Oropharynx was moist. Mallampati #3 oropharynx. No gross jugular venous distention. She has a large neck circumference, but no thyromegaly. NECK: Grossly, there were no palpable lymph nodes in the supraclavicular or submandibular lymph node chains. LUNGS: Auscultation of both lung mai were essentially unremarkable. She had occasional inspiratory crackles in the bases that cleared with coughing. No active wheezing. CARDIOVASCULAR: Heart sounds 1 and 2 were heard at the time of my evaluation. Irregular rate and rhythm. No rubs or murmurs. ABDOMEN: Soft, full, bowel sounds are positive, nontender. No palpable hepatosplenomegaly. EXTREMITIES: Without overt digital clubbing, cyanosis, no pedal edema. Pedal pulses are palpable and strong bilaterally. NEUROLOGIC: Pupils are equal, round, about 4 mm, reactive to light. Extraocular muscle movements were intact. She moves all 4 extremities spontaneously. No tremors at rest. SKIN: Normal turgor. No cellulitis or rash. PSYCHIATRIC: Mood was normal affect was appropriate. LABORATORY DATA: From my review was as follows: White cell count 9700, hemoglobin 12.0, hematocrit 36.7, platelet count 265. INR 1.16. Serum sodium was 143, potassium 3.9, chloride 105, bicarb 27, BUN 10, creatinine 1.2, glucose was 100. Troponin within normal limits. BNP within normal limits for her age. LDL cholesterol was elevated at 214. A repeat troponin was up to 0.15. TSH was within normal limits and free T4 was within normal limits. No microbiology studies. Chest x-ray shows gross cardiomegaly, median sternotomy wires that appeared to be intact, postsurgical changes in the bases of the costophrenic angles are actually clear. No gross pneumothorax, no gross bony fracture. Perhaps an area of atelectasis in the right middle lobe region. ASSESSMENT AND PLAN: 1. Atrial fibrillation with rapid ventricular response. 2. Acute respiratory distress as a result of #1 above. 3. History of coronary artery disease, status post coronary artery bypass graft. 4. Morbid obesity, likely history of sleep apnea based on her characteristics, physical characteristics as well as the history she gives me to include nonrestorative sleep and snoring. 5. Hyperlipidemia. 6. Hypertension, poorly controlled. 7. Diabetes. 8. Arthritis. 9. History of congestive heart failure. 10. Elevated serum troponins. PLAN: Acute coronary syndrome workup is ongoing. I will defer to the electrophysiology scientist. Her rate is actually better controlled now and no longer needing the Cardizem drip that is about to be transitioned. I will defer to the electrophysiology scientist for rate control medications. I do have a fear that obstructive sleep apnea and its syndromes may be playing a part in her overall presentation. I will go ahead and get an arterial blood gas in her just to evaluate for hypercapnia. I think especially with a remote tobacco history, she will benefit from pulmonary function test and she will also benefit from a sleep lab as continued untreated sleep apnea if present, will have, deleterious effects on her coronary artery disease related issues, her congestive heart failure, her hypertension control, and may actually be a player in the development of atrial fibrillation in the first case. She is going to be placed on full anticoagulation. I will put her on GI prophylaxis, especially with her being on full anticoagulation. Her magnesium level has been checked and is within normal limits. Glycemic control will be via sliding scale insulin for target blood glucose less than 180 mg/dL. Flu and pneumonia vaccination will be addressed per protocol. Thank you very much for the consult. We will follow along. We will make further recommendations as picture progresses/becomes clearer. JOB# [id number] FOSTER/MIKEY ORONA
[2019-03-06] MEDS ORDERED: BABY ASPIRIN PO SCH (10:00)
== END 2019-03-05 18:15 | disposition home or self-care (01) | DRG 305 ==
LOC: ED 20:39 → CC1 22:33 → 4A 03-04 00:55
PROVIDERS: ADMIT Internal Medicine; ATTEND Internal Medicine
PROC: 4A033R1 Measurement of Arterial Saturation, Peripheral, Percutaneous Approach (ICD-10-PCS; principal; 2019-03-05)
DX: I16.0 Hypertensive urgency (principal); I48.91 Unspecified atrial fibrillation; I25.5 Ischemic cardiomyopathy; I25.10 Atherosclerotic heart disease of native coronary artery without angina pectoris; E11.9 Type 2 diabetes mellitus without complications; I11.0 Hypertensive heart disease with heart failure; R06.03 Acute respiratory distress; E66.01 Morbid (severe) obesity due to excess calories; E78.5 Hyperlipidemia, unspecified; I50.9 Heart failure, unspecified; M17.0 Bilateral primary osteoarthritis of knee; I25.2 Old myocardial infarction; Z68.38 Body mass index [BMI] 38.0-38.9, adult; Z95.1 Presence of aortocoronary bypass graft; Z90.710 Acquired absence of both cervix and uterus
CPT/HCPCS: 36415; 36600; 71045; 80048; 80061; 82550; 82553; 82803; 82962; 83735; 83880; 84439; 84443; 84484; 85014; 85018; 85025; 85049; 85520; 85610; 85730; 93005; 93010; 96374; 96375; 99285; G0378; A9270-GY; J1644; J1815; J2270; J2405; J3010

== ENCOUNTER 2019-03-14 06:29 | Observation (INO) | payer MEDICARE ==
[2019-03-14] MEDS ORDERED: ECOTRIN PO NR (06:45)
[2019-03-14] MEDS ORDERED: NACL 0.9% 500 ML 500 ML IV SCH (07:00)
[2019-03-14 07:36] LABS: Basophils # (Auto) 0.1 K/mm3 (0.0-0.1); Basophils % (Auto) 0.9 % (0.0-1.8); Eosinophils # (Auto) 0.2 K/mm3 (0.0-0.4); Eosinophils % (Auto) 2.2 % (0.0-4.3); Hematocrit 36.6 % (30.3-42.9); Hemoglobin 12.2 gm/dl (10.1-14.3); Lymphocytes # (Auto) 2.4 K/mm3 (1.2-5.4); Lymphocytes % (Auto) 31.9 % (13.4-35.0); Mean Corpuscular HGB Conc 33 % (30-34); Mean Corpuscular Volume 85 fl (79-97); Monocytes # (Auto) 0.7 K/mm3 (0.0-0.8); Monocytes % (Auto) 9.1 % (0.0-7.3); Platelet Count 280 K/mm3 (140-440); Red Blood Count 4.33 M/mm3 (3.65-5.03); Red Cell Distribution Width 19.8 % (13.2-15.2)
[2019-03-14 07:46] LABS: INR 1.08 (0.87-1.13)
[2019-03-14 07:47] LABS: Partial Thromboplastin Time 32.7 Sec. (24.2-36.6)
[2019-03-14 07:53] LABS: Calcium 9.7 mg/dL (8.4-10.2)
[2019-03-14] MEDS ORDERED: HEPARIN/NS 5000 UNIT/500ML(CATH LAB) 1,000 ML IR ONE (09:38)
[2019-03-14] MEDS ORDERED: NITROGLYCERIN SYRINGE 3 ML ONE (09:39)
[2019-03-14] MEDS: VERSED ONE ×3 (10:00→11:10)
[2019-03-14] MEDS: SUBLIMAZE ONE ×4 (10:00→11:27)
[2019-03-14] MEDS: XYLOCAINE 2% INFILTRATI ONE ×2 (10:00→10:38)
[2019-03-14] MEDS ORDERED: APRESOLINE ONE (10:35)
[2019-03-14] MEDS: HEPARIN 10,000 UNITS/10 ML ONE ×2 (10:41→10:55)
[2019-03-14] MEDS ORDERED: TRIDIL DRIP 50MG/250ML 50 MG/250 ML BOTTLE ONE (10:57)
[2019-03-14] MEDS ORDERED: DILAUDID ONE (10:58)
[2019-03-14] MEDS ORDERED: ZOFRAN IV PRN (12:16)
[2019-03-14] MEDS ORDERED: AMBIEN PO PRN (12:16)
[2019-03-14] MEDS ORDERED: ULTRAM PO PRN (12:16)
[2019-03-14] MEDS ORDERED: CATAPRES PO PRN (12:21)
[2019-03-14] MEDS ORDERED: APRESOLINE IV PRN (12:21)
--- NOTE | 2019-03-14 12:28 | Event Note ---
Date: 03/14/19 Patient presented for outpatient cardiac catheterization and angioplasty, see dictated report for details. Attempted angioplasty and stenting of the [place] circumflex was unsuccessful due to severe tortuosity of the proximal vessel before the lesional segment. Patient will be managed medically, observed overnight, anticipated discharge tomorrow morning. Medication changes on discharge: We will discontinue amlodipine, and discontinue diltiazem, instead add Procardia XL 60 mg to blood pressure management. We'll add clopidogrel 75 mg by mouth daily to antiplatelet regimen. We will increase Ranexa and isosorbide mononitrate as needed for optimal antianginal benefit.
[2019-03-14] MEDS ORDERED: ROSUVASTATIN CALCIUM 40 MG PO SCH (12:30)
[2019-03-14] MEDS ORDERED: NON-FORMULARY (Omeprazole 40 MG) PO SCH (12:30)
[2019-03-14] MEDS ORDERED: IRBESARTAN 150 MG PO SCH (12:30)
[2019-03-14] MEDS ORDERED: NACL 0.9% 1000 ML 1,000 ML IV SCH (13:00)
--- NOTE | 2019-03-14 13:08 | Cardiac Catherization Report ---
CARDIAC CATHETERIZATION AND CORONARY ANGIOPLASTY REPORT REASON FOR PROCEDURE: The patient is a 68-year-old woman with complex coronary artery disease, status post 3 separate coronary bypass operations, most recently in 2007. She presented at this time with recurrent chest pain. On a cardiac catheterization procedure done 3 months ago at [facility], she was found with nonobstructive irregularities of the left main and left anterior descending arteries The circumflex artery contained severe disease in its proximal and mid segments. Notably, the saphenous vein graft to the circumflex was patent, but also contained a long segment of moderately severe atherosclerosis. The right coronary artery was a chronic total occlusion filled by faint left to right collaterals. At that procedure, nonselective injections into the left and right subclavian recorded atrophic closure of both right and left internal mammary artery grafts. The patient was at that time recommended for medical therapy, but presented last week to the hospital with recurrent angina pectoris. She was referred for a repeat cardiac catheterization at this time, with a plan for ad hoc coronary angioplasty to the vein graft to the circumflex artery, and alternatively revascularization of the iroquois vessel. The iroquois vessel is noted to have severe tortuosity, in the proximal vessel leading to the lesional segment. DESCRIPTION OF PROCEDURE: The patient was prepped and draped in a sterile fashion after informed consent. The right femoral artery was entered using Seldinger technique followed by placement of a 6-Macedonian sheath. Selective left and right coronary angiography was performed using #4 left and right Al catheters. The right Al was used for saphenous vein graft angiography. We did not perform angiography of the internal mammary artery grafts, which are established to be atrophic on the prior cardiac catheterization. CORONARY ANGIOGRAPHY: The left main coronary artery contained mild distal tapering. The left anterior descending artery was a very tortuous vessel that contained diffuse mild atherosclerosis in its proximal and mid segments, no severe obstructive lesions. The diagonal branches contained diffuse mild atherosclerosis. The circumflex artery as reported was severely tortuous in its proximal segment, with 2 acute bends, leading up to a long segment of disease of the mid vessel, with an up to 80% luminal stenosis. Following that, there was another 75% stenosis of the mid distal segment leading to a medium sized terminal obtuse marginal. The right coronary artery was relatively small caliber vessel, chronically occluded, with faint left to right collaterals fill in its distal segment. Angiography of the saphenous vein graft revealed all five saphenous vein grafts to be occluded. Notably, the previously patent vein graft to the circumflex system seen on the cardiac catheterization three months ago is currently completely closed at its origin. CORONARY ANGIOPLASTY: We recommended ad hoc coronary intervention to the iroquois circumflex. We initially selected an XB 3.5 guiding catheter and advanced to the left coronary vessel. A 0.014 inch [employer]ist 50 guidewire was successfully introduced through the vessel, across the lesional segments. Following wire placement, we were unable to transition balloon catheters through the tortuous segment of the proximal vessel. Despite multiple guidewires, and guiding catheter combinations including exchanged for a #3 left Amplatz guiding catheter, and a 1.5 mm balloon catheter, we were unable to transition a balloon catheter through the vessel. After multiple attempts, the procedure was aborted, the catheters and the wires were removed, post-intervention angiograms revealed a patent vessel with no change in severity of the lesions within the circumflex system. The catheters were then removed, sheath removed, and hemostasis achieved using an Angio-Seal device. The patient was returned to the postprocedure unit in stable condition. There were no complications. CONCLUSION: 1. Coronary artery disease, with a chronic total occlusion of the right coronary artery and severe disease of a tortuous circumflex system. 2. Oral saphenous vein grafts are occluded, left internal mammary artery graft and right coronary artery graft are atrophic on a prior cardiac catheterization. 3. Attempted ad hoc angioplasty of the circumflex system unsuccessful due to severe tortuosity of the proximal vessel. The patient will be recommended for aggressive risk factor modification and medical therapy. [facility]# [id number] CHANG/MIKEY
[2019-03-14] MEDS ORDERED: NACL 0.9% 1000 ML 1,000 ML ONE (13:19)
[2019-03-14] MEDS ORDERED: CATAPRES ONE (13:29)
[2019-03-14] MEDS: IMDUR PO SCH (18:53)
[2019-03-14] MEDS: LASIX PO SCH (18:54)
[2019-03-14] MEDS: PROCARDIA XL PO SCH (18:56)
[2019-03-14] MEDS: PROTONIX PO SCH ×2 (18:56→22:24)
[2019-03-14] MEDS: COZAAR PO SCH (18:56)
[2019-03-14] MEDS: PLAVIX PO SCH (18:57)
[2019-03-14] MEDS: CATAPRES PO SCH ×2 (18:58→22:23)
[2019-03-14] MEDS: RANEXA ER PO SCH ×2 (18:58→22:24)
[2019-03-15] MEDS: LASIX PO SCH (06:27)
[2019-03-15 06:38] LABS: Basophils % (Auto) 0.3 % (0.0-1.8); Eosinophils # (Auto) 0.1 K/mm3 (0.0-0.4); Eosinophils % (Auto) 1.2 % (0.0-4.3); Hematocrit 34.5 % (30.3-42.9); Hemoglobin 11.4 gm/dl (10.1-14.3); Lymphocytes % (Auto) 33.1 % (13.4-35.0); Mean Corpuscular HGB Conc 33 % (30-34); Mean Corpuscular Volume 85 fl (79-97); Monocytes # (Auto) 0.8 K/mm3 (0.0-0.8); Monocytes % (Auto) 9.4 % (0.0-7.3); Platelet Count 248 K/mm3 (140-440); Red Blood Count 4.06 M/mm3 (3.65-5.03)
[2019-03-15 07:05] LABS: Creatine Kinase MB 2.6 ng/mL (0.0-4.0)
[2019-03-15 07:09] LABS: Red Cell Distribution Width 20.5 % (13.2-15.2)
--- NOTE | 2019-03-15 08:31 | XRay Report ---
CHEST 1 VIEW INDICATION: Patient just underwent percutaneous coronary artery intervention, evaluate for pulmonary abnormality. COMPARISON: 03/03/2019 FINDINGS: Support devices: None. Heart: Previous CABG changes are noted. Mild cardiomegaly is stable. Lungs/Pleura: Partial atelectasis in the right middle lobe is unchanged. The lungs are clear otherwis e. No pleural effusion or pneumothorax. Additional findings: None. IMPRESSION: No acute findings. Mild cardiomegaly and partial atelectasis of the right middle lobe. Signer Name: Stephen Munoz Jr, MD Signed: 03/15/2019 8:26 AM Workstation Name: [id number]
--- NOTE | 2019-03-15 09:43 | Short Stay Summary ---
Short Stay Documentation Date of service: 03/15/19 - History H&P: obtained from office - Allergies and Medications Current Medications: Allergies No Known Allergies Allergy (Verified 08/18/17 03:49) Home Medications Medication Instructions Recorded Confirmed Last Taken Type Glimepiride [Amaryl] 2 mg PO QAM 07/13/15 03/14/19 03/13/19 History Tizanidine HCl [tiZANidine] 4 mg PO DAILY 07/13/15 03/14/19 03/13/19 History Furosemide [Lasix TAB] 40 mg PO QDAY 08/18/17 03/14/19 03/13/19 History HYDROcodone/APAP 7.5-325 [Shafer 1 tab PO Q6H 08/18/17 03/14/19 03/13/19 History 7.5-325 mg TAB] cloNIDine [Catapres] 0.1 mg PO BID 08/18/17 03/14/19 03/13/19 History ALPRAZolam 1 mg PO PRN 03/03/19 03/14/19 03/12/19 History Carvedilol 3.125 mg PO DAILY 03/03/19 03/14/19 03/13/19 History Irbesartan 150 mg PO DAILY 03/03/19 03/14/19 03/13/19 History Nitroglycerin 0.4 mg SL PRN 03/03/19 03/14/19 03/03/19 History Omeprazole 40 mg PO BID 03/03/19 03/14/19 03/13/19 History Ondansetron TAB 4 mg PO PRN 03/03/19 03/14/19 03/13/19 History Ranitidine HCl 150 mg PO BID 03/03/19 03/14/19 03/13/19 History Rosuvastatin Calcium 40 mg PO DAILY 03/03/19 03/14/19 03/13/19 History Vitamin D2 50,000 units PO Q7D 03/03/19 03/14/19 03/12/19 History amLODIPine 10 mg PO DAILY 03/03/19 03/14/19 03/13/19 History Apixaban [Eliquis] 5 mg PO Q12HR #60 tablet 03/05/19 03/14/19 03/12/19 Rx Aspirin [Aspirin BABY CHEW TAB] 81 mg PO QDAY #30 tab.chew 03/05/19 03/14/19 03/12/19 Rx ISOSORBIDE MONOnitrate [Imdur ER] 30 mg PO QDAY #30 tablet 03/05/19 03/14/19 03/13/19 Rx Ranolazine ER [Ranexa ER] 500 mg PO BID #60 tablet 03/05/19 03/14/19 03/13/19 Rx dilTIAZem HCl [Diltiazem 24Hr ER 120 mg PO DAILY #30 cap.er.24h 03/05/19 03/14/19 03/13/19 Rx (Cd)] Insulin Glargine,Hum.rec.anlog 50 unit SQ QHS 03/14/19 03/14/19 03/13/19 History [Raymon Romo U-100] Sitagliptin Phosphate [Januvia] 50 mg PO QDAY 03/14/19 03/14/19 03/13/19 History Active Medications Aspirin (Baby Aspirin) 81 mg PO QDAY [facility] Atorvastatin Calcium (Lipitor) 40 mg PO QHS [facility] Last Admin: 03/14/19 22:24 Dose: 40 mg Documented by: Carvedilol (Coreg) 3.125 mg PO DAILY [facility] Clonidine HCl (Catapres) 0.1 mg PO BID [facility] Last Admin: 03/14/19 22:23 Dose: 0.1 mg Documented by: Clonidine HCl (Catapres) 0.1 mg PO Q4H PRN PRN Reason: SBP >160 Last Admin: 03/14/19 13:29 Dose: 0.1 mg Documented by: Clopidogrel Bisulfate (Plavix) 75 mg PO QDAY [facility] Last Admin: 03/14/19 18:57 Dose: 75 mg Documented by: Furosemide (Lasix) 40 mg PO DAILY@0600 [facility] Last Admin: 03/15/19 06:27 Dose: 40 mg Documented by: Glimepiride (Amaryl) 2 mg PO QAM [facility] Hydralazine HCl (Apresoline) 5 mg IV Q4HR PRN PRN Reason: SBP>170 Isosorbide Mononitrate (Imdur) 30 mg PO QDAY [facility] Last Admin: 03/14/19 18:53 Dose: 30 mg Documented by: Losartan Potassium (Cozaar) 50 mg PO QDAY [facility] Last Admin: 03/14/19 18:56 Dose: 50 mg Documented by: Nifedipine (Procardia Xl) 60 mg PO QDAY [facility] Last Admin: 03/14/19 18:56 Dose: 60 mg Documented by: Ondansetron HCl (Zofran) 4 mg IV Q8H PRN PRN Reason: N/V unrelieved by Reglan Pantoprazole Sodium (Protonix) 40 mg PO BID [facility] Last Admin: 03/14/19 22:24 Dose: 40 mg Documented by: Ranolazine (Ranexa Er) 500 mg PO BID [facility] Last Admin: 03/14/19 22:24 Dose: 500 mg Documented by: Tramadol HCl (Ultram) 50 mg PO Q4H PRN PRN Reason: Pain, Mild (1-3) Last Admin: 03/14/19 18:56 Dose: 50 mg Documented by: Zolpidem Tartrate (Ambien) 5 mg PO QHS PRN PRN Reason: Sleep Last Admin: 03/14/19 22:27 Dose: 5 mg Documented by: - Physical exam General appearance: no acute distress HEENT: PERRLA Heart: Normal S1, Normal S2 - Brief post op/procedure progress note Condition: stable - Hospital course Hospital course: Stable overnight observation. - Disposition Condition at discharge: Good Disposition: [id number] TO HOME OR SELFCARE Short Stay Discharge Plan Activity: advance as tolerated Weight Bearing Status: Partial Weight Bearing Diet: low fat, low cholesterol, low salt, diabetic Wound: keep clean and dry Follow up with: MARCUS OTT MD [Primary Care Provider] - 7 Days TARA BENTON MD [Staff Physician] - 7 Days Prescriptions: Carvedilol [Coreg] 6.25 mg PO BID #60 tablet Apixaban [Eliquis] 2.5 mg PO BID #60 tablet Clopidogrel [Plavix] 75 mg PO QDAY #30 tablet NIFEdipine XL [Procardia Xl] 60 mg PO QDAY #30 tablet
[2019-03-15] MEDS ORDERED: AMARYL PO SCH (10:00)
[2019-03-15] MEDS ORDERED: COREG PO SCH (10:00)
[2019-03-15] MEDS ORDERED: BABY ASPIRIN PO SCH (10:00)
[2019-03-15] MEDS ORDERED: NON-FORMULARY (Carvedilol 3.125 MG) PO SCH (10:00)
[2019-03-15] MEDS: RANEXA ER PO SCH (10:10)
[2019-03-15] MEDS: PLAVIX PO SCH (10:10)
[2019-03-15] MEDS: PROTONIX PO SCH (10:11)
[2019-03-15] MEDS: CATAPRES PO SCH (10:13)
[2019-03-15] MEDS: IMDUR PO SCH (10:13)
[2019-03-15] MEDS: PROCARDIA XL PO SCH (10:14)
[2019-03-15] MEDS: COZAAR PO SCH (10:14)
[2019-03-15 10:17] VITALS: BP 149/69
== END 2019-03-15 14:10 | disposition home or self-care (01) ==
LOC: CATHLABREC 06:29 → 4A 12:16
PROVIDERS: ADMIT Internal Medicine Cardiovascular Disease; ATTEND Internal Medicine Cardiovascular Disease
DX: I25.10 Atherosclerotic heart disease of native coronary artery without angina pectoris (principal)
CPT/HCPCS: 36415; 71045; 80048; 82550; 82553; 82962; 84484; 85025; 85610; 85730; 92920; 93005; 93010; 93455; A9270; C1725; C1760; C1769; C1887; C1894; G0378; J0360; J1170; J1644; J2250; J3010; J7030; J7040; 85347; 96365; Q9967

== ENCOUNTER 2019-04-18 09:40 | Outpatient (CLI) | payer MEDICARE ==
--- NOTE | 2019-04-18 13:44 | Magnetic Resonance Report ---
MR UE joint RT wo con INDICATION / CLINICAL INFORMATION: M25.11 RIGHT SHOULDER PAIN. TECHNIQUE: Multiplanar, multisequence MR images were obtained. COMPARISON: None available. FINDINGS: There is mild acromioclavicular degenerative change which results in mild encroachment. There is trac e fluid in the subdeltoid/subacromial bursa. Infraspinatus tendinosis is noted with mild articular surface fraying. Rotator cuff tendons are other jones unremarkable. No rotator cuff tendon tear is seen. There is an incidental intramuscular lipoma w ithin the superior fibers of the teres minor muscle. Rotator cuff muscles are otherwise unremarkable. There is mild biceps tenosynovitis. The biceps tendon is intact. There is mild glenohumeral degenerative change with degenerative signal in the superior labrum. No pa ra labral cyst is seen. Bone marrow signals unremarkable aside from mild subcortical cystlike change in the posterior lateral greater tuberosity. IMPRESSION: 1. Infraspinatus tendinosis with articular surface fraying. No discrete rotator cuff tear is seen. 2. Mild AC degenerative change results in mild encroachment. There is trace fluid in the subdeltoid/s ubacromial bursa. 3. Mild biceps tenosynovitis. Signer Name: Kiel Li MD Signed: 04/18/2019 1:39 PM Workstation Name: [id number]
== END 2019-04-18 09:41 | disposition home or self-care (01) ==
LOC: MRI 09:40
PROVIDERS: ATTEND Radiology Diagnostic Radiology
DX: M19.011 Primary osteoarthritis, right shoulder (principal); M65.811 Other synovitis and tenosynovitis, right shoulder; M75.21 Bicipital tendinitis, right shoulder; I11.0 Hypertensive heart disease with heart failure; I50.9 Heart failure, unspecified; E78.00 Pure hypercholesterolemia, unspecified; E66.9 Obesity, unspecified; I48.91 Unspecified atrial fibrillation; Z87.891 Personal history of nicotine dependence

== ENCOUNTER 2020-04-23 12:24 | Outpatient (CLI) | payer MEDICARE ==
--- NOTE | 2020-04-23 14:29 | Magnetic Resonance Report ---
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 TECHNIQUE: Multisequence, multiplanar images of the lumbar spine were obtained. COMPARISON: None available. FINDINGS: ALIGNMENT: Normal lumbar lordosis without significant scoliosis. VERTEBRAE:Normal marrow signal and vertebral body height for age. VISUALIZED SPINAL CORD: No significant abnormality. [id number]-LOTRA ANALYSIS: L1-2: Mild spondylosis without canal or foraminal narrowing. L2-3: Mild spondylosis and mild bilateral facet DJD without canal or foraminal narrowing. L3-4: Mild spondylosis and moderate bilateral facet DJD without canal or foraminal narrowing. L4-5: Mild spondylosis with symmetric bulging of the disc and moderate bilateral facet DJD. Mild righ t neural foraminal narrowing. L5-S1: Mild bilateral facet DJD without canal or foraminal narrowing. PARASPINAL SOFT TISSUES: No significant abnormality. ADDITIONAL FINDINGS: None. IMPRESSION: 1. Diffuse generalized spondylosis and facet DJD in the lumbar spine as described above. 2. No focal central canal stenosis or significant neural impingement. Mild right neural foraminal sara rowing at L4-5. Signer Name: Fidencio Orozco MD Signed: 04/23/2020 2:24 PM Workstation Name: [id number]
== END 2020-04-23 12:25 | disposition home or self-care (01) ==
LOC: MRI 12:24
PROVIDERS: ATTEND Anesthesiology
DX: M51.26 Other intervertebral disc displacement, lumbar region (principal); M47.897 Other spondylosis, lumbosacral region; M48.061 Spinal stenosis, lumbar region without neurogenic claudication
CPT/HCPCS: 72148